=== PATIENT | female | born 1955 | race Caucasian/White ===

== ENCOUNTER 2018-10-10 13:21 | Emergency (ER) | payer OTHER ==
--- NOTE | 2018-10-10 14:19 | ER Document Report ---
ED Medical Screen (RME) - General Chief Complaint: Rectal Pain Stated Complaint: CONTINUED LOW BACK PAIN Time Seen by Provider: 10/10/18 14:03 Mode of Arrival: Ambulatory Information source: Patient Notes: 62-year-old female presented to ED for continued pain in her sacral rectum area. She states it feels like a red hot branches stepped up her but. She states she was seen here a week ago and was told she was had constipation and that she needed a colonoscopy. She states she did follow-up with Dr. Milli CAO and he said that he did not think she had diverticulitis and that he did think she needed a colonoscopy. She states that a year and a half ago she did fall 30 feet and landing on her buttocks. Last week when I saw her she had lab work and CT with IV and oral contrast which were negative for any acute abnormalities. She states she has been researching and she thinks she has a lesion on her sacrum. I have spoken with Dr. May and he stated that to go ahead and get the MRI on her lumbar sacral area. The MRI has been ordered. Patient will be seen by another provider. I have greeted and performed a rapid initial assessment of this patient. A comprehensive ED assessment and evaluation of the patient, analysis of test results and completion of medical decision making process will be conducted by an additional ED providers. Dictation of this chart was performed using voice recognition software; therefore, there may be some unintended grammatical errors. TRAVEL OUTSIDE OF THE [place] IN LAST 30 DAYS: No - Related Data Allergies/Adverse Reactions: No Known Allergies Allergy (Verified 10/10/18 13:25) Past Medical History - Social History Chew tobacco use (# tins/day): No Frequency of alcohol use: Occasional Drug Abuse: None Renal/ Medical History: Denies: Hx Peritoneal Dialysis Past Surgical History: Reports: Hx Hysterectomy Physical Exam - Vital signs Vitals: Temp Pulse Resp BP Pulse Ox 97.7 F 83 18 124/96 H 97 10/10/18 13:30 10/10/18 13:30 10/10/18 13:30 10/10/18 13:30 10/10/18 13:30 Course - Vital Signs Vital signs: Temp Pulse Resp BP Pulse Ox 97.7 F 83 18 124/96 H 97 10/10/18 13:30 10/10/18 13:30 10/10/18 13:30 10/10/18 13:30 10/10/18 13:30
[2018-10-10] MEDS ORDERED: KETOROLAC TROMETHAMINE INJ/PF 30 MG/1 ML SDV IM ONE (15:22)
[2018-10-10] MEDS ORDERED: ONDANSETRON 4 MG TAB.RAPDIS PO ONE (15:29)
[2018-10-10] MEDS ORDERED: MORPHINE SULFATE 10 MG/ML INJ IM ONE ×2 (15:29)
[2018-10-10] MEDS ORDERED: ONDANSETRON HCL INJ/PF 4 MG/2 ML SDV IM ONE (15:30)
[2018-10-10] MEDS ORDERED: MORPHINE SULFATE 10 MG/ML INJ IV ONE (16:15)
[2018-10-10] MEDS ORDERED: HYDROMORPHONE HCL INJ/PF 2 MG/ML AMPULE IV ONE ×2 (17:39→19:12)
--- NOTE | 2018-10-10 17:41 | ER Document Report ---
ED General - General Chief Complaint: Rectal Pain Stated Complaint: CONTINUED LOW BACK PAIN Time Seen by Provider: 10/10/18 14:03 Primary Care Provider: MARS FINLEY MD [ACTIVE STAFF] - Follow up in 3-5 days Mode of Arrival: Ambulatory Information source: Patient Notes: Patient presents complaining of sacral pain for the past month. Patient states pain will radiate to the posterior aspect of her left thigh. Patient states that she saw an urgent care last week who did notice that she had some blood in her stool. Patient was seen in the emergency department last week and had a negative CT scan and lab work done. Patient was referred to a GI doctor who she saw 2 days ago and is planning to set her up for a colonoscopy although does not suspect that her pain is related to a GI source at this time. Patient denies any injury. Patient denies any fever or weight loss. Patient states pain is been constant daily but has been worsening recently. Patient is concerned that she may have a mass and is requesting an MRI to evaluate this. TRAVEL OUTSIDE OF THE [place] IN LAST 30 DAYS: No - HPI Onset: Other - 1 month Onset/Duration: Persistent, Worse Quality of pain: Sharp, Throbbing Pain Level: 5 Associated symptoms: denies: Body/muscle aches, Chest pain, Nonproductive cough, Fever, Nausea, Vomiting, Weakness Exacerbated by: Sitting Relieved by: Denies Similar symptoms previously: No Recently seen / treated by doctor: Yes - Related Data Allergies/Adverse Reactions: No Known Allergies Allergy (Verified 10/10/18 13:25) Past Medical History - General Information source: Patient - Social History Smoking Status: Never Smoker Chew tobacco use (# tins/day): No Frequency of alcohol use: Occasional Drug Abuse: None Occupation: none Lives with: Family Family History: Reviewed & Not Pertinent Patient has suicidal ideation: No Patient has homicidal ideation: No - Medical History Medical History: Negative Renal/ Medical History: Denies: Hx Peritoneal Dialysis Past Surgical History: Reports: Hx Hysterectomy, Hx Orthopedic Surgery Review of Systems - Review of Systems Constitutional: No symptoms reported. denies: Chills, Fever, Malaise, Weakness, Weight loss, Recent illness EENT: No symptoms reported Cardiovascular: No symptoms reported. denies: Chest pain, Lightheaded Respiratory: No symptoms reported. denies: Cough, Short of breath Gastrointestinal: No symptoms reported. denies: Abdominal pain, Nausea, Vomiting Genitourinary: No symptoms reported. denies: Dysuria, Flank pain Female Genitourinary: No symptoms reported Musculoskeletal: Back pain - Sacral pain Skin: No symptoms reported Hematologic/Lymphatic: No symptoms reported Neurological/Psychological: No symptoms reported. denies: Weakness, Numbness, Tingling Physical Exam - Vital signs Vitals: Temp Pulse Resp BP Pulse Ox 97.7 F 83 18 124/96 H 97 10/10/18 13:30 10/10/18 13:30 10/10/18 13:30 10/10/18 13:30 10/10/18 13:30 - General General appearance: Appears well, Alert In distress: Mild - HEENT Head: Normocephalic, Atraumatic Eyes: Normal Conjunctiva: Normal Nasal: Normal Mouth/Lips: Normal Mucous membranes: Normal Neck: Normal, Supple - Respiratory Respiratory status: No respiratory distress Chest status: Nontender Breath sounds: Normal. No: Rales, Rhonchi, Stridor, Wheezing Chest palpation: Normal - Cardiovascular Rhythm: Regular Heart sounds: S1 appreciated, S2 appreciated Murmur: No - Back Back: Tender - tenderness to the gluteal cleft - Extremities General upper extremity: Normal inspection, Normal strength General lower extremity: Normal inspection, Normal strength - Neurological Neuro grossly intact: Yes Cognition: Normal Orientation: AAOx4 Mcgrann Coma Scale Eye Opening: Spontaneous Mc[place]ann Coma Scale Verbal: Oriented Mcgrann Coma Scale Motor: Obeys Commands Mcgrann Coma Scale Total: 15 Speech: Normal Cranial nerves: Normal Cerebellar coordination: Normal. No: Gait ataxia Motor strength normal: LUE, RUE, LLE, RLE Sensory: Normal. No: Altered light touch Notes: No saddle anesthesia - Psychological Associated symptoms: Normal affect, Normal mood - Skin Skin Temperature: Warm Skin Moisture: Dry Skin Color: Normal Course - Re-evaluation Re-evalutation: 10/10/18 17:[address] Babak May regarding patient presentation, recommends consultation with oncologist Dr. Finley. 10/10/18 18:[address] Finley, reviewed the patient's diagnostic work-up from today as well as last week's visit. Recommends adding on a CT chest with IV contrast for further evaluation. Recommends giving patient the option of admission for pain control or to be discharged and to follow-up with his office on Saturday. Dr. Finley received patient's contact information and states that his office will call her on Saturday morning if she does not want to be admitted for pain control. Discussed plan of care with patient, patient states that she feels that she can take oral medications and attempt to manage her pain until she can see them in the office on Saturday. 10/10/18 19:13 Dr. Finley advised of patient's CT chest report results. Recommends follow-up in the office next week as planned. No additional testing advised at this time. - Vital Signs Vital signs: Temp Pulse Resp BP Pulse Ox 98.2 F 85 16 123/101 H 95 10/10/18 19:42 10/10/18 19:42 10/10/18 19:42 10/10/18 19:42 10/10/18 19:42 - Laboratory Result Diagrams: 10/10/18 18:27 Laboratory results interpreted by me: 10/10/18 18:27 Est GFR (Non-Af Amer) 57 L Calcium 10.4 H Labs- Entire Visit 10/10/18 18:27 Sodium 140.2 Potassium 4.7 Chloride 102 Carbon Dioxide 25 Anion Gap 13 BUN 13 Creatinine 0.99 Est GFR ( Amer) > 60 Est GFR (Non-Af Amer) 57 L Glucose 101 Calcium 10.4 H - Diagnostic Test Radiology reviewed: Reports reviewed Discharge - Discharge Clinical Impression: Lung mass, Sacral mass, Sacral back pain Condition: Stable Disposition: HOME, SELF-CARE Instructions: Growth or Mass, Pending Workup ([facility]), Oral Narcotic Medication ([facility]) Additional Instructions: Return immediately for any new or worsening symptoms Dr. Finley's office will call you Saturday or Saturday. If you have not heard from them on Saturday can give their office a call. They will see you in the office next week for further evaluation and to set up a time for biopsy. Prescriptions: Oxycodone HCl/Acetaminophen [Percocet 5-325 mg Tablet] 2 tab PO ASDIR PRN #30 tablet PRN Reason: Referrals: MARS FINLEY MD [ACTIVE STAFF] - Follow up in 3-5 days
--- NOTE | 2018-10-10 17:44 | RADIOLOGY REPORT (SQ) ---
EXAM DESCRIPTION: MRI LUMBAR SPINE COMBO COMPLETED DATE/TIME: 10/10/2018 5:11 pm REASON FOR STUDY: Severe lumbar sacral spine continued COMPARISON: None. TECHNIQUE: Sagittal and Axial imaging includes T1, T1 post gadolinium, T2, STIR and gradient echo se quences. Coronal T2/HASTE imaging. CONTRAST TYPE AND DOSE: 15 mL Dotarem. RENAL FUNCTION: GFR > 60. LIMITATIONS: None. FINDINGS: VISUALIZED UPPER ABDOMEN: Limited evaluation. No acute or suspicious findings suggested. Multilevel degenerative disc disease throughout the lumbar spine with disc desiccation and mild disc height loss throughout all levels. Greatest disc height loss at the L1-2 level, approximately 75%. Global disc bulging at all levels is present, no focal disc protrusion or high-grade stenosis-nerve r oot compression. There is 6 mm of anterolisthesis of L4 on L5 due to digit degenerative facet arthro sis. SACRUM: There is an enhancing mass in the lower central sacral body, at the level of the S 4 -5 neuro foramina. The mass has low T1 signal, intermediate -high T2 signal, and enhances vividly, this mass measures 3.6 cm in craniocaudad dimension by 3.2 cm transversely by 2.0 cm in AP dimension. There is mild adjacent periosteal -presacral fat enhancement and erosion of the anterior sacral cortex. OTHER: No other significant findings. IMPRESSION: There is an enhancing mass in the lower central sacral body, at the level of the S 4 -5 neuroforamina. The mass has low T1 signal, intermediate -high T2 signal, and enhances vividly, this m ass measures 3.6 cm in craniocaudad dimension by 3.2 cm transversely by 2.0 cm in AP dimension. Ther e is mild adjacent periosteal -presacral fat enhancement and erosion of the anterior sacral cortex. TECHNICAL DOCUMENTATION: JOB ID: [id number] [place]-72 2010 [employer]- All Rights Reserved Reading location - IP/workstation name: [email or web address]
[2018-10-10 18:54] LABS: ANION GAP 13 (5-19); BLOOD UREA NITROGEN 13 mg/dL (7-20); CALCIUM 10.4 mg/dL (8.4-10.2); CARBON DIOXIDE 25 mmol/L (22-30); CHLORIDE 102 mmol/L (98-107); GLUCOSE 101 mg/dL (75-110); POTASSIUM 4.7 mmol/L (3.6-5.0)
--- NOTE | 2018-10-10 18:56 | RADIOLOGY REPORT (SQ) ---
EXAM DESCRIPTION: CT CHEST WITH COMPLETED DATE/TIME: 10/10/2018 6:41 pm REASON FOR STUDY: sacral lesion, (req per Dr Camarena) COMPARISON: None. TECHNIQUE: CT scan of the chest performed using helical scanning technique with dynamic intravenous contrast injection. Images reviewed with lung, soft tissue and bone windows. Reconstructed coronal and sagittal MPR and MIP images reviewed. All images stored on PACS. All CT scanners at this facility use dose modulation, iterative reconstruction, and/or weight based d osing when appropriate to reduce radiation dose to as low as reasonably achievable (ALARA). [facility]: Dose Right [facility]: CareDose [facility]: Dose Right [facility]: Teradose 4D [facility]: [employer] CONTRAST TYPE AND DOSE: 100 mL Omnipaque 300- low osmolar. RENAL FUNCTION: GFR > 60. RADIATION DOSE: CT Rad equipment meets quality standard of care and radiation dose reduction techniq ues were employed. CTDIvol: 11.4 mGy. DLP: 412 mGy-cm. . LIMITATIONS: None. FINDINGS: LUNGS AND PLEURA: 3.4 cm spiculated mass in the left upper lobe with small areas of upper mediastinal adenopathy. . No pneumothorax. No effusions. HEART AND VASCULAR STRUCTURES: No aneurysm or dissection. No central pulmonary emboli. No pericardi al effusion. HARDWARE: None in the chest. UPPER ABDOMEN: No significant findings. Limited exam. THYROID AND OTHER SOFT TISSUES: No masses. No adenopathy. BONES: No significant finding. OTHER: No other significant finding. IMPRESSION: 3.4 cm spiculated mass in the left upper lobe with small areas of upper mediastinal rosalba opathy. TECHNICAL DOCUMENTATION: JOB ID: [id number] [place]-72 Quality ID # 436: Final reports with documentation of one or more dose reduction techniques (e.g., Au tomated exposure control, adjustment of the mA and/or kV according to patient size, use of iterative reconstruction technique) 2010 [employer]- All Rights Reserved Reading location - IP/workstation name: [email or web address]
[2018-10-10 19:43] VITALS: BP 123/101
== END 2018-10-10 19:43 | disposition home or self-care (01) ==
LOC: ER 13:21
DX: R22.2 Localized swelling, mass and lump, trunk (principal); R91.8 Other nonspecific abnormal finding of lung field; M53.3 Sacrococcygeal disorders, not elsewhere classified; M79.652 Pain in left thigh
CPT/HCPCS: 36415; 80048; 72158; 71260; A9576; S0119; J2270; J1170; 96374; 96375; 96376; 99284

== ENCOUNTER 2018-10-15 11:09 | Day surgery (SDC) | payer OTHER ==
[2018-10-15 12:14] LABS: HEMATOCRIT 43.3 % (36.0-47.0); HEMOGLOBIN 14.7 g/dL (12.0-15.5); MEAN CORPUSCULAR HEMOGLOBIN 32.3 pg (27.0-33.4); MEAN CORPUSCULAR HGB CONC 33.9 g/dL (32.0-36.0); MEAN CORPUSCULAR VOLUME 95 fl (80-97); PLATELET COUNT 251 10^3/uL (150-450); RED BLOOD COUNT 4.56 10^6/uL (3.72-5.28); RED CELL DISTRIBUTION WIDTH 12.5 % (11.5-14.0); WHITE BLOOD COUNT 5.5 10^3/uL (4.0-10.5)
[2018-10-15 12:23] LABS: INTERNATIONAL RATION (INR) 0.97; PROTHROMBIN TIME 12.9 SEC (11.4-15.4)
[2018-10-15 12:24] LABS: PARTIAL THROMBOPLASTIN TIME 28.8 SEC (23.5-35.8)
[2018-10-15 12:37] LABS: BLOOD UREA NITROGEN 11 mg/dL (7-20)
[2018-10-15] MEDS ORDERED: MIDAZOLAM 2 MG/2 ML INJ ONE (13:04)
[2018-10-15] MEDS ORDERED: FENTANYL CITRATE INJ/PF 100 MCG/2 ML AMPUL ONE (13:04)
--- NOTE | 2018-10-15 14:30 | RADIOLOGY REPORT (SQ) ---
EXAM DESCRIPTION: CT BIOPSY BONE DEEP; CT NEEDLE PLACEMENT COMPLETED DATE/TIME: 10/15/2018 1:59 pm; 10/15/2018 1:58 pm REASON FOR STUDY: SACRAL MASS; SACRAL MASS, BONE BIOPSY S34.132A INCOMPLETE LESION OF SACRAL SPINAL CORD, INITIAL EN COMPARISON: None. TECHNIQUE: CT guided biopsy of the sacral soft tissue mass performed with conscious sedation. CT Fluoroscopy Time: 3.[address] scanners at this facility use dose modulation, iterative reconstruction, and/or weight based d osing when appropriate to reduce radiation dose to as low as reasonably achievable (ALARA). [facility]: Dose Right [facility]: CareDose [facility]: Dose Right [facility]: Teradose 4D [facility]: [employer] RADIATION DOSE: mGy. FINDINGS: After obtaining informed consent and explaining the risks and benefits of conscious sedati on,the patient agreed to the procedure. Prior to the procedure, a time out was performed to verify th e patient's identity and planned procedure. IV sedation was administered and physician direction by the registered nurse using 1 milligrams of Ve rsed and 75 micrograms of fentanyl, for conscious sedation. Physiologic monitoring was provided befor e, during, and after sedation. The total sedation time was 30 minutes. Documentation face to face time, the performing proceduralist, spent monitoring the patient: [address] scanning was performed to localize the percutaneous site for the biopsy approach. After sterile skin prep and local lidocaine for skin and deep tissue anesthesia, a coaxial biopsy nee dle was used to obtain multiple 18 gauge cores of tissue of the sacral soft tissue lesion. The biops y tissue was submitted to the lab in formalin. There were no immediate complications. Pathology is pending at the time of dictation. IMPRESSION: CT GUIDED BIOPSY OF THE SACRAL SOFT TISSUE LESION PERFORMED WITHOUT IMMEDIATE COMPLICATI ON. PATHOLOGY PENDING. COMMENT: Quality ID 145: Final reports for procedures using fluoroscopy that document radiation exp osure indices, or exposure time and number of fluorographic images (if radiation exposure indices are not available) Patient medication list reviewed: Yes- Quality ID# [id number]:Eligible professional attests to documenting i n the medical record they obtained, updated, or reviewed the patient's current medications.. TECHNICAL DOCUMENTATION: JOB ID: [id number] Quality ID# 436: Final reports with documentation of one or more dose reduction techniques (e.g., Aut omated exposure control, adjustment of the mA and/or kV according to patient size, use of iterative r econstruction technique) 2010 [employer]- All Rights Reserved Reading location - IP/workstation name: [email or web address]
--- NOTE | 2018-10-15 14:30 | RADIOLOGY REPORT (SQ) ---
EXAM DESCRIPTION: CT BIOPSY BONE DEEP; CT NEEDLE PLACEMENT COMPLETED DATE/TIME: 10/15/2018 1:59 pm; 10/15/2018 1:58 pm REASON FOR STUDY: SACRAL MASS; SACRAL MASS, BONE BIOPSY S34.132A INCOMPLETE LESION OF SACRAL SPINAL CORD, INITIAL EN COMPARISON: None. TECHNIQUE: CT guided biopsy of the sacral soft tissue mass performed with conscious sedation. CT Fluoroscopy Time: 3.[address] scanners at this facility use dose modulation, iterative reconstruction, and/or weight based d osing when appropriate to reduce radiation dose to as low as reasonably achievable (ALARA). [facility]: Dose Right [facility]: CareDose [facility]: Dose Right [facility]: Teradose 4D [facility]: [employer] RADIATION DOSE: mGy. FINDINGS: After obtaining informed consent and explaining the risks and benefits of conscious sedati on,the patient agreed to the procedure. Prior to the procedure, a time out was performed to verify th e patient's identity and planned procedure. IV sedation was administered and physician direction by the registered nurse using 1 milligrams of Ve rsed and 75 micrograms of fentanyl, for conscious sedation. Physiologic monitoring was provided befor e, during, and after sedation. The total sedation time was 30 minutes. Documentation face to face time, the performing proceduralist, spent monitoring the patient: [address] scanning was performed to localize the percutaneous site for the biopsy approach. After sterile skin prep and local lidocaine for skin and deep tissue anesthesia, a coaxial biopsy nee dle was used to obtain multiple 18 gauge cores of tissue of the sacral soft tissue lesion. The biops y tissue was submitted to the lab in formalin. There were no immediate complications. Pathology is pending at the time of dictation. IMPRESSION: CT GUIDED BIOPSY OF THE SACRAL SOFT TISSUE LESION PERFORMED WITHOUT IMMEDIATE COMPLICATI ON. PATHOLOGY PENDING. COMMENT: Quality ID 145: Final reports for procedures using fluoroscopy that document radiation exp osure indices, or exposure time and number of fluorographic images (if radiation exposure indices are not available) Patient medication list reviewed: Yes- Quality ID# [id number]:Eligible professional attests to documenting i n the medical record they obtained, updated, or reviewed the patient's current medications.. TECHNICAL DOCUMENTATION: JOB ID: [id number] Quality ID# 436: Final reports with documentation of one or more dose reduction techniques (e.g., Aut omated exposure control, adjustment of the mA and/or kV according to patient size, use of iterative r econstruction technique) 2010 [employer]- All Rights Reserved Reading location - IP/workstation name: [email or web address]
[2018-10-15 15:27] VITALS: BP 127/77
== END 2018-10-15 15:45 | disposition home or self-care (01) ==
LOC: RAD 11:09
PROVIDERS: ATTEND Internal Medicine
DX: C79.51 Secondary malignant neoplasm of bone (principal); R59.0 Localized enlarged lymph nodes; S34.13 Other and unspecified injury to sacral spinal cord; X58.XXXA Exposure to other specified factors, initial encounter
CPT/HCPCS: 36415; 84520; 82565; 85027; 85610; 85730; 88342 ×2; 88341 ×2; 88305 ×2; 77012; 20225; J2250; J3010

== ENCOUNTER 2018-10-29 07:58 | Emergency (ER) | payer OTHER ==
[2018-10-29] MEDS ORDERED: HYDROMORPHONE HCL INJ/PF 2 MG/ML AMPULE IV ONE ×2 (08:58→11:31)
[2018-10-29 09:36] LABS: APPEARANCE,URINE CLEAR; BILIRUBIN,URINE NEGATIVE (NEGATIVE); COLOR,URINE STRAW; GLUCOSE, URINE NEGATIVE (NEGATIVE); KETONES,URINE NEGATIVE (NEGATIVE); LEUKOCYTE ESTERASE,URINE NEGATIVE (NEGATIVE); NITRITE,URINE NEGATIVE (NEGATIVE); PROTEIN,URINE NEGATIVE (NEGATIVE); URINE SPECIFIC GRAVITY 1.012; UROBILINOGEN,URINE NEGATIVE mg/dL (<2.0)
[2018-10-29 11:07] LABS: ABSOLUTE EOSINOPHILS # (AUTO) 0.1 10^3/uL (0.0-0.6); ABSOLUTE LYMPHOCYTES (AUTO) 0.9 10^3/uL (0.5-4.7); ABSOLUTE MONOCYTES (AUTO) 0.6 10^3/uL (0.1-1.4); ABSOLUTE NEUT (AUTO) 8.1 10^3/uL (1.7-8.2); BASOPHILS % (AUTO) 0.5 % (0-2); LYMPHOCYTES % (AUTO) 9.5 % (13-45); MEAN CORPUSCULAR HGB CONC 33.3 g/dL (32.0-36.0); MEAN CORPUSCULAR VOLUME 96 fl (80-97); MONOCYTES % (AUTO) 5.9 % (3-13); PLATELET COUNT 296 10^3/uL (150-450); RED BLOOD COUNT 4.37 10^6/uL (3.72-5.28); RED CELL DISTRIBUTION WIDTH 12.8 % (11.5-14.0); SEGMENTED NEUTROPHILS % (AUTO) 83.1 % (42-78); TOTAL CELLS COUNTED % (AUTO) 100 %; WHITE BLOOD COUNT 9.8 10^3/uL (4.0-10.5)
[2018-10-29 11:12] LABS: ALBUMIN 3.9 g/dL (3.5-5.0); ALKALINE PHOSPHATASE 59 U/L (38-126); ANION GAP 9 (5-19); ASPARTATE AMINO TRANSFERASE 18 U/L (14-36); BILIRUBIN,DIRECT 0.4 mg/dL (0.0-0.4); BILIRUBIN,TOTAL 0.4 mg/dL (0.2-1.3); BLOOD UREA NITROGEN 19 mg/dL (7-20); CALCIUM 9.8 mg/dL (8.4-10.2); CARBON DIOXIDE 30 mmol/L (22-30); CHLORIDE 99 mmol/L (98-107); GLUCOSE 104 mg/dL (75-110); POTASSIUM 4.7 mmol/L (3.6-5.0); TOTAL PROTEIN 6.7 g/dL (6.3-8.2)
--- NOTE | 2018-10-29 12:19 | ER Document Report ---
ED General - General Chief Complaint: Urinary Retention Stated Complaint: PAIN, LOW BACK Time Seen by Provider: 10/29/18 08:58 Mode of Arrival: Ambulatory Information source: Patient TRAVEL OUTSIDE OF THE [place] IN LAST 30 DAYS: No - HPI Notes: Patient comes in complaining of urinary retention and severe sacral and abdominal pain. She does have a history of metastatic cancer. She states his pain is been going on for a little over a week. It has been constant and severe. She states it is not controlled with her outpatient medications. Nothing makes it better or worse. It radiates from the sacral area into her abdomen. She also states she is unable to pee this morning. No diarrhea or vomiting. No fevers. Pain is sharp. - Related Data Allergies/Adverse Reactions: morphine Adverse Reaction (Verified 10/29/18 09:21) Past Medical History - General Information source: Patient - Social History Smoking Status: Never Smoker Chew tobacco use (# tins/day): No Frequency of alcohol use: None Drug Abuse: None Family History: Reviewed & Not Pertinent Patient has suicidal ideation: No Patient has homicidal ideation: No - Past Medical History Cardiac Medical History: Denies: Hx Coronary Artery Disease, Hx Heart Attack, Hx Hypertension Pulmonary Medical History: Denies: Hx Asthma, Hx Bronchitis, Hx Pneumonia Comment Only: Hx 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, BX SATURDAY Neurological Medical History: Denies: Hx Cerebrovascular Accident, Hx Seizures Renal/ Medical History: Denies: Hx Peritoneal Dialysis Musculoskeletal Medical History: Denies Hx Arthritis Past Surgical History: Reports: Hx Hysterectomy, Hx Orthopedic Surgery - Immunizations Hx Diphtheria, Pertussis, Tetanus Vaccination: Yes Review of Systems - Review of Systems Constitutional: denies: Chills, Fever Cardiovascular: denies: Chest pain, Dyspnea Respiratory: denies: Cough, Short of breath -: Yes All other systems reviewed and negative Physical Exam - Vital signs Vitals: Temp Pulse Resp BP Pulse Ox 98.3 F 134 H 24 H 128/75 H 95 10/29/18 08:02 10/29/18 08:02 10/29/18 08:02 10/29/18 08:02 10/29/18 08:02 Interpretation: Tachycardic - General General appearance: Appears well, Alert - HEENT Head: Normocephalic, Atraumatic Eyes: Normal Pupils: PERRL - Respiratory Respiratory status: No respiratory distress Chest status: Nontender Breath sounds: Normal Chest palpation: Normal - Cardiovascular Rhythm: Tachycardia Heart sounds: Normal auscultation Murmur: No - Abdominal Inspection: Normal Distension: No distension Bowel sounds: Normal Tenderness: Nontender Organomegaly: No organomegaly - Back Back: Normal, Nontender - Extremities General upper extremity: Normal inspection, Nontender, Normal color, Normal ROM, Normal temperature General lower extremity: Normal inspection, Nontender, Normal color, Normal ROM, Normal temperature, Normal weight bearing. No: Juan Jose's sign - Neurological Neuro grossly intact: Yes Cognition: Normal Orientation: AAOx4 [place] Coma Scale Eye Opening: Spontaneous Sia Coma Scale Verbal: Oriented Sia Coma Scale Motor: Obeys Commands [place] Coma Scale Total: 15 Speech: Normal Motor strength normal: LUE, RUE, LLE, RLE Sensory: Normal - Psychological Associated symptoms: Normal affect, Normal mood - Skin Skin Temperature: Warm Skin Moisture: Dry Skin Color: Normal Course - Re-evaluation Re-evalutation: 10/29/18 12:16 Patient has significant relief with IV Dilaudid and placement of a Billy. Patient will have a leg bag placed and she will be referred to urology. Laboratories are unremarkable no evidence of infection. I did speak with [facility] where patient is receiving her oncology care. They felt that patient can be treated locally until they have availability which they currently do not have. I called patient's oncologist here in [place], Dr. Thi dawson. He asked the patient come over to his office once I discharge the patient from here. - Vital Signs Vital signs: Temp Pulse Resp BP Pulse Ox 98.3 F 134 H 24 H 128/75 H 95 10/29/18 08:02 10/29/18 08:02 10/29/18 08:02 10/29/18 08:02 10/29/18 08:02 - Laboratory Result Diagrams: 10/29/18 09:20 10/29/18 09:20 Laboratory results interpreted by me: 10/29/18 09:20 Lymph % (Auto) 9.5 L Seg Neutrophils % 83.1 H Discharge - Discharge Clinical Impression: Metastatic adenocarcinoma, Urinary retention, Intractable back pain Condition: Stable Disposition: HOME, SELF-CARE Instructions: Urinary Retention ([facility]) Additional Instructions: Please call urology as soon as possible to schedule a follow-up appointment. Please go straight to Dr. Camarena's office when you leave here today. Referrals: DARWIN MCCARTNEY MD [NO LOCAL MD] - Follow up in 3-5 days MARS CAMARENA MD [ACTIVE STAFF] - 10/29/18 1:00 pm
[2018-10-29 12:40] VITALS: BP 125/100
== END 2018-10-29 12:40 | disposition home or self-care (01) ==
LOC: ER 07:58
DX: C80.1 Malignant (primary) neoplasm, unspecified (principal); R33.9 Retention of urine, unspecified; M54.9 Dorsalgia, unspecified; M54.5 Low back pain
CPT/HCPCS: 96376; 99283; 96374; 36415; 85025; 80053; 81001; J1170

== ENCOUNTER 2018-12-02 15:18 | Emergency (ER) | payer OTHER ==
[2018-12-02] MEDS ORDERED: ASPIRIN 81 MG TABLET, CHEWABLE PO ONE (15:48)
--- NOTE | 2018-12-02 15:50 | ER Document Report ---
ED Medical Screen (RME) - General Chief Complaint: Chest Pain Stated Complaint: CHEST PAIN Time Seen by Provider: 12/02/18 15:39 Mode of Arrival: Wheelchair Information source: Patient Notes: 62-year-old female presented to ED for chest pain 245. She states that is stopped now. She states she had severe shortness of breath could not get her breath her blood pressure was 168/98 and she was having severe sharp chest pain. She does have adenocarcinoma they found an aortoiliac sacrum and now she has lung cancer. She is alert oriented respirations regular and unlabored speaking in full sentences. Patient states she is pain-free at this time. I have greeted and performed a rapid initial assessment of this patient. A comprehensive ED assessment and evaluation of the patient, analysis of test results and completion of medical decision making process will be conducted by an additional ED providers. TRAVEL OUTSIDE OF THE [place] 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, BX SATURDAY Neurological Medical History: Denies: Hx Cerebrovascular Accident, Hx Seizures Renal/ Medical History: Denies: Hx Peritoneal Dialysis Musculoskeltal Medical History: Denies Hx Arthritis Past Surgical History: Reports: Hx Hysterectomy, Hx Orthopedic Surgery - Immunizations Hx Diphtheria, Pertussis, Tetanus Vaccination: Yes Physical Exam - Vital signs Vitals: Temp Pulse Resp BP Pulse Ox 98.4 F 75 18 129/80 H 98 12/02/18 15:31 12/02/18 15:31 12/02/18 15:31 12/02/18 15:31 12/02/18 15:31 Course - Vital Signs Vital signs: Temp Pulse Resp BP Pulse Ox 98.4 F 75 18 129/80 H 98 12/02/18 15:31 12/02/18 15:31 12/02/18 15:31 12/02/18 15:31 12/02/18 15:31
[2018-12-02 16:21] LABS: ABSOLUTE LYMPHOCYTES (AUTO) 0.9 10^3/uL (0.5-4.7); ABSOLUTE MONOCYTES (AUTO) 0.3 10^3/uL (0.1-1.4); BASOPHILS % (AUTO) 0.5 % (0-2); EOSINOPHILS % (AUTO) 0.9 % (0-6); HEMATOCRIT 39.5 % (36.0-47.0); HEMOGLOBIN 13.2 g/dL (12.0-15.5); LYMPHOCYTES % (AUTO) 16.4 % (13-45); MEAN CORPUSCULAR HEMOGLOBIN 32.9 pg (27.0-33.4); MEAN CORPUSCULAR HGB CONC 33.3 g/dL (32.0-36.0); MEAN CORPUSCULAR VOLUME 99 fl (80-97); MONOCYTES % (AUTO) 6.5 % (3-13); PLATELET COUNT 242 10^3/uL (150-450); RED CELL DISTRIBUTION WIDTH 13.9 % (11.5-14.0); SEGMENTED NEUTROPHILS % (AUTO) 75.7 % (42-78); TOTAL CELLS COUNTED % (AUTO) 100 %; WHITE BLOOD COUNT 5.3 10^3/uL (4.0-10.5)
[2018-12-02 16:31] LABS: INTERNATIONAL RATION (INR) 0.94; PROTHROMBIN TIME 12.6 SEC (11.4-15.4)
[2018-12-02 16:32] LABS: PARTIAL THROMBOPLASTIN TIME 26.2 SEC (23.5-35.8)
[2018-12-02 16:42] LABS: ALBUMIN 3.7 g/dL (3.5-5.0); ALKALINE PHOSPHATASE 81 U/L (38-126); ANION GAP 6 (5-19); ASPARTATE AMINO TRANSFERASE 70 U/L (14-36); BILIRUBIN,DIRECT 0.2 mg/dL (0.0-0.4); BILIRUBIN,TOTAL 0.4 mg/dL (0.2-1.3); BLOOD UREA NITROGEN 23 mg/dL (7-20); CALCIUM 9.2 mg/dL (8.4-10.2); CARBON DIOXIDE 30 mmol/L (22-30); CHLORIDE 102 mmol/L (98-107); CREATINE KINASE 43 U/L (30-135); GLUCOSE 104 mg/dL (75-110); POTASSIUM 4.6 mmol/L (3.6-5.0); TOTAL PROTEIN 6.4 g/dL (6.3-8.2)
[2018-12-02 16:54] LABS: CREATINE KINASE MB 0.65 ng/mL (<4.55); NT PRO BNP 107 pg/mL (5-900)
[2018-12-02 16:57] LABS: TROPONIN I < 0.012 ng/mL
--- NOTE | 2018-12-02 18:27 | RADIOLOGY REPORT (SQ) ---
EXAM DESCRIPTION: CTA CHEST COMPLETED DATE/TIME: 12/02/2018 5:55 pm REASON FOR STUDY: chest pain/hx cancer COMPARISON: 10/10/2018. TECHNIQUE: CT scan of the chest performed using helical scanning technique with dynamic intravenous contrast injection. Images reviewed with lung, soft tissue and bone windows. Reconstructed coronal and sagittal MPR images reviewed. Additional 3 dimensional post-processing performed to develop Maximal Intensity Projection images (NC P). All images stored on PACS. All CT scanners at this facility use dose modulation, iterative reconstruction, and/or weight based d osing when appropriate to reduce radiation dose to as low as reasonably achievable (ALARA). [facility]: Dose Right [facility]: CareDose [facility]: Dose Right [facility]: Teradose 4D [facility]: Smash Bucket CONTRAST TYPE AND DOSE: contrast/concentration: Isovue 350.00 mg/ml; Total Contrast Delivered: 61.0 ml; Total Saline Delivered: 80.0 ml Contrast bolus adequate for pulmonary arteries and aorta. RENAL FUNCTION: BUN 23 creatinine 0.84. RADIATION DOSE: CT Rad equipment meets quality standard of care and radiation dose reduction techniq ues were employed. CTDIvol: 9.9 - 16.3 mGy. DLP: 601 mGy-cm. . LIMITATIONS: None. FINDINGS: LUNGS AND PLEURA: Spiculated mass in the left upper lobe, little change from the prior april dy. No focal infiltrates. No pneumothorax. No pleural effusions or pleural calcifications. AORTA AND GREAT VESSELS: No aneurysm. No dissection. HEART: No pericardial effusion. No significant coronary artery calcifications. PULMONARY ARTERIES: No emboli visualized in the main pulmonary arteries or the segmental branches. HILAR AND MEDIASTINAL STRUCTURES: No identified masses or abnormal nodes. HARDWARE: None in the chest. UPPER ABDOMEN: No significant findings. Limited exam. THYROID AND OTHER SOFT TISSUES: No masses. No adenopathy. BONES: No acute or significant finding. 3D MIPS: Confirm above findings. OTHER: No other significant finding. IMPRESSION: 1. NORMAL CTA OF THE CHEST. NO PULMONARY EMBOLI. 2. SPICULATED MASS IN THE LEFT UPPER LOBE. LITTLE CHANGE FROM THE PRIOR STUDY. NO ACUTE FINDINGS. COMMENT: Quality ID # [id number]: Final reports with documentation of one or more dose reduction techniques (e.g., Automated exposure control, adjustment of the mA and/or kV according to patient size, use of iterative reconstruction technique) TECHNICAL DOCUMENTATION: JOB ID: [id number] [employer]- All Rights Reserved Reading location - IP/workstation name: [email or web address]
--- NOTE | 2018-12-02 19:09 | ER Document Report ---
ED Cardiac - General Chief Complaint: Chest Pain Stated Complaint: CHEST PAIN Time Seen by Provider: 12/02/18 15:39 Mode of Arrival: Ambulatory Information source: Patient TRAVEL OUTSIDE OF THE [place] IN LAST 30 DAYS: No - HPI Notes: Patient presents today with chest pain. She states it started just before arrival. She states with onset of her chest and sharp. It was moderate in intensity. It lasted for about 1 hour. Nothing made it better or worse. She states that it spontaneously resolved. She has no previous history of cardiac disease. No history of DVTs or PEs. No recent cough or congestion. She did just recently have radiation for her metastatic cancer. It did not radiate. 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 denies: Palpitations Respiratory: Short of breath. denies: Cough Gastrointestinal: denies: Abdominal pain, Diarrhea, Vomiting -: Yes All other systems reviewed and negative Physical Exam - Vital signs Vitals: Temp Pulse Resp BP Pulse Ox 98.4 F 75 18 129/80 H 98 12/02/18 15:31 12/02/18 15:31 12/02/18 15:31 12/02/18 15:31 12/02/18 15:31 Interpretation: Normal - General General appearance: Appears well, Alert - HEENT Head: Normocephalic, Atraumatic Eyes: Normal Pupils: PERRL - Respiratory Respiratory status: No respiratory distress Chest status: Nontender Breath sounds: Normal Chest palpation: Normal - Cardiovascular Rhythm: Regular Heart sounds: Normal auscultation Murmur: No - Abdominal Inspection: Normal Distension: No distension Bowel sounds: Normal Tenderness: Nontender Organomegaly: No organomegaly - Back Back: Normal, Nontender - Extremities General upper extremity: Normal inspection, Nontender, Normal color, Normal ROM, Normal temperature General lower extremity: Normal inspection, Nontender, Normal color, Normal ROM, Normal temperature, Normal weight bearing. No: Juan Jose's sign - Neurological Neuro grossly intact: Yes Cognition: Normal Orientation: AAOx4 [place] Coma Scale Eye Opening: Spontaneous [place] Coma Scale Verbal: Oriented [place] Coma Scale Motor: Obeys Commands Sia Coma Scale Total: 15 Speech: Normal Motor strength normal: LUE, RUE, LLE, RLE Sensory: Normal - Psychological Associated symptoms: Normal affect, Normal mood - Skin Skin Temperature: Warm Skin Moisture: Dry Skin Color: Normal Course - Re-evaluation Re-evalutation: 12/02/18 19:08 Patient presented with chest pain shortness of breath. No evidence of cardiac disease. No evidence of pulmonary embolism. No evidence of infection. I am unsure of the exact etiology of the shortness of breath and chest pain but I do believe the patient is safe for discharge home. - Vital Signs Vital signs: Temp Pulse Resp BP Pulse Ox 98.2 F 75 24 H 124/77 98 12/02/18 16:20 12/02/18 15:31 12/02/18 18:01 12/02/18 18:01 12/02/18 18:01 - Laboratory Result Diagrams: 12/02/18 16:00 12/02/18 16:00 Laboratory results interpreted by me: 12/02/18 12/02/18 16:00 16:00 MCV 99 H BUN 23 H Magnesium 2.4 H AST 70 H - Diagnostic Test Radiology reviewed: Image reviewed, Reports reviewed - EKG Interpretation by Me EKG shows normal: Sinus rhythm Rate: Normal - 75 Rhythm: NSR [place]/QRS: Left axis deviation Discharge - Discharge Clinical Impression: Chest pain Qualifiers: Chest pain type: unspecified Qualified Code(s): R07.9 - Chest pain, unspecified Condition: Stable Disposition: HOME, SELF-CARE Instructions: Chest Wall Pain ([facility]) Additional Instructions: Please call your primary care doctor or oncologist as soon as possible to arrange follow-up
[2018-12-02 19:13] VITALS: BP 117/67
--- NOTE | 2018-12-02 20:55 | EKG REPORT ---
SEVERITY:- ABNORMAL ECG - SINUS RHYTHM BORDERLINE LEFT AXIS DEVIATION NONSPECIFIC T ABNORMALITIES, INFERIOR LEADS : Confirmed by: Katie Cabrera MD 02-Dec-2018 20:54:25
== END 2018-12-02 19:00 | disposition home or self-care (01) ==
LOC: ER 15:18
DX: R07.9 Chest pain, unspecified (principal); C79.9 Secondary malignant neoplasm of unspecified site; J44.9 Chronic obstructive pulmonary disease, unspecified; R06.02 Shortness of breath
CPT/HCPCS: 36415; 71275; 80053; 82550; 82553; 83735; 83880; 84443; 84484; 85025; 85610; 85730; 93005; 93010

== ENCOUNTER 2019-01-01 13:53 | Emergency (ER) | payer OTHER ==
--- NOTE | 2019-01-01 14:17 | ER Document Report ---
ED Medical Screen (RME) - General Chief Complaint: Upper Abdominal Pain Stated Complaint: ABDOMINAL PAIN/LAB WORK Time Seen by Provider: 01/01/19 14:14 Mode of Arrival: Ambulatory Information source: Patient Notes: 63-year-old female presents to ED for complaint of upper abdominal pain. She states she does have some nausea and diarrhea but no vomiting. She started on a trial for cancer and she is taking the medication poziotimib 16 mg daily for 2 years she states she just started. she states that the clinical trial doctor told her that she could take Zofran if she wanted to. States that her primary doctor told her to come to the emergency room to get some blood work to make sure everything is okay. I have greeted and performed a rapid initial assessment of this patient. A comp rehensive ED assessment and evaluation of the patient, analysis of test results and completion of medical decision making process will be conducted by an additional ED providers. TRAVEL OUTSIDE OF THE [place] 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 Neurological Medical History: Denies: Hx Cerebrovascular Accident, Hx Seizures Renal/ Medical History: Denies: Hx Peritoneal Dialysis Musculoskeltal Medical History: Denies Hx Arthritis Past Surgical History: Reports: Hx Hysterectomy, Hx Orthopedic Surgery - Immunizations Hx Diphtheria, Pertussis, Tetanus Vaccination: Yes Physical Exam - Vital signs Vitals: Temp Pulse Resp BP Pulse Ox 97.3 F 72 18 137/89 H 99 01/01/19 14:05 01/01/19 14:05 01/01/19 14:05 01/01/19 14:05 01/01/19 14:05 Course - Vital Signs Vital signs: Temp Pulse Resp BP Pulse Ox 97.3 F 72 18 137/89 H 99 01/01/19 14:05 01/01/19 14:05 01/01/19 14:05 01/01/19 14:05 01/01/19 14:05
[2019-01-01 14:57] LABS: ABSOLUTE EOSINOPHILS # (AUTO) 0.3 10^3/uL (0.0-0.6); ABSOLUTE LYMPHOCYTES (AUTO) 2.1 10^3/uL (0.5-4.7); ABSOLUTE MONOCYTES (AUTO) 0.4 10^3/uL (0.1-1.4); ABSOLUTE NEUT (AUTO) 3.3 10^3/uL (1.7-8.2); BASOPHILS % (AUTO) 0.8 % (0-2); EOSINOPHILS % (AUTO) 5.1 % (0-6); HEMATOCRIT 43.9 % (36.0-47.0); HEMOGLOBIN 14.8 g/dL (12.0-15.5); LYMPHOCYTES % (AUTO) 34.5 % (13-45); MEAN CORPUSCULAR HEMOGLOBIN 32.4 pg (27.0-33.4); MEAN CORPUSCULAR HGB CONC 33.8 g/dL (32.0-36.0); MEAN CORPUSCULAR VOLUME 96 fl (80-97); MONOCYTES % (AUTO) 6.8 % (3-13); PLATELET COUNT 195 10^3/uL (150-450); RED BLOOD COUNT 4.58 10^6/uL (3.72-5.28); RED CELL DISTRIBUTION WIDTH 13.4 % (11.5-14.0); SEGMENTED NEUTROPHILS % (AUTO) 52.8 % (42-78); TOTAL CELLS COUNTED % (AUTO) 100 %; WHITE BLOOD COUNT 6.2 10^3/uL (4.0-10.5)
[2019-01-01 15:01] LABS: APPEARANCE,URINE CLEAR; BILIRUBIN,URINE NEGATIVE (NEGATIVE); COLOR,URINE YELLOW; GLUCOSE, URINE NEGATIVE (NEGATIVE); KETONES,URINE NEGATIVE (NEGATIVE); PROTEIN,URINE NEGATIVE (NEGATIVE); URINE SPECIFIC GRAVITY 1.014; UROBILINOGEN,URINE NEGATIVE mg/dL (<2.0)
[2019-01-01 15:16] LABS: ALBUMIN 4.1 g/dL (3.5-5.0); ALKALINE PHOSPHATASE 68 U/L (38-126); ANION GAP 8 (5-19); ASPARTATE AMINO TRANSFERASE 22 U/L (14-36); BILIRUBIN,DIRECT 0.2 mg/dL (0.0-0.4); BILIRUBIN,TOTAL 0.4 mg/dL (0.2-1.3); BLOOD UREA NITROGEN 19 mg/dL (7-20); CALCIUM 9.9 mg/dL (8.4-10.2); CARBON DIOXIDE 28 mmol/L (22-30); CHLORIDE 104 mmol/L (98-107); GLUCOSE 96 mg/dL (75-110); POTASSIUM 4.2 mmol/L (3.6-5.0); TOTAL PROTEIN 6.9 g/dL (6.3-8.2)
--- NOTE | 2019-01-01 16:28 | ER Document Report ---
ED General - General Chief Complaint: Abdominal Pain Stated Complaint: ABDOMINAL PAIN/LAB WORK Time Seen by Provider: 01/01/19 14:14 Mode of Arrival: Ambulatory Information source: Patient TRAVEL OUTSIDE OF THE [place] IN LAST 30 DAYS: No - HPI Notes: 63-year-old female presents the ED with complaints of epigastric pain for the last week. Patient recently started clinical trial medication for adenocarcinoma of her lung, her oncologist wanted her to come to the emergency room to get labs to make sure that her liver enzymes were not elevated. Patient states she is does have some nausea with starting this medication. Denies fevers, chills, chest pain,palpitations, shortness of breath, dyspnea, nausea, vomiting, diarrhea, abdominal pain, hematuria,blurred vision, double vision, loss of vision, speech changes, LH, dizziness, syncope, headaches, wheezing, ST, URI, neck pain, weakness, bowel or bladder dysfunction, saddle anesthesia, numbness or tingling in bilateral upper or lower extremities equally, muscle paralysis, weakness in bilateral upper or lower extremities equally or rash. - Related Data Allergies/Adverse Reactions: morphine Adverse Reaction (Verified 01/01/19 14:13) Past Medical History - General Information source: Patient - Social History Smoking Status: Never Smoker Chew tobacco use (# tins/day): No Frequency of alcohol use: None Family History: Reviewed & Not Pertinent Patient has suicidal ideation: No Patient has homicidal ideation: No - Past Medical History Cardiac Medical History: Denies: Hx Coronary Artery Disease, Hx Heart Attack, Hx Hypertension Pulmonary Medical History: Denies: Hx Asthma, Hx Bronchitis, Hx Pneumonia Comment Only: Hx 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, BX SATURDAY Neurological Medical History: Denies: Hx Cerebrovascular Accident, Hx Seizures Renal/ Medical History: Denies: Hx Peritoneal Dialysis Musculoskeletal Medical History: Denies Hx Arthritis Past Surgical History: Reports: Hx Hysterectomy, Hx Orthopedic Surgery - Immunizations Hx Diphtheria, Pertussis, Tetanus Vaccination: Yes Review of Systems - Review of Systems Constitutional: No symptoms reported EENT: No symptoms reported Cardiovascular: No symptoms reported Respiratory: No symptoms reported Gastrointestinal: See HPI Genitourinary: No symptoms reported Female Genitourinary: No symptoms reported Musculoskeletal: No symptoms reported Skin: No symptoms reported Hematologic/Lymphatic: No symptoms reported Neurological/Psychological: No symptoms reported Physical Exam - Vital signs Vitals: Temp Pulse Resp BP Pulse Ox 97.3 F 72 18 137/89 H 99 01/01/19 14:05 01/01/19 14:05 01/01/19 14:05 01/01/19 14:05 01/01/19 14:05 - Notes Notes: PHYSICAL EXAMINATION: reviewed vital signs by RN GENERAL: Well-appearing, well-nourished and in no acute distress. HEAD: Atraumatic, normocephalic. EYES: Pupils equal round and reactive to light, extraocular movements intact, conjunctiva are normal. ENT: Nares patent, oropharynx clear without exudates. Moist mucous membranes. NECK: Normal range of motion, supple without lymphadenopathy LUNGS: Breath sounds clear to auscultation bilaterally and equal. No wheezes rales or rhonchi. HEART: Regular rate and rhythm without murmurs ABDOMEN: Soft, epigastric tenderness nondistended abdomen. No guarding, no rebound. No masses appreciated. Female : deferred Musculoskeletal: Normal range of motion, no pitting or edema. No cyanosis. NEUROLOGICAL: Cranial nerves grossly intact. Normal speech, normal gait. Normal sensory, motor exams PSYCH: Normal mood, normal affect. SKIN: Warm, Dry, normal turgor, no rashes or lesions noted. Course - Re-evaluation Re-evalutation: 01/01/19 17:00 afebrile, vitals stable no distress. Nurse's notes reviewed. CBC negative for leukocytosis or anemia, CMP negative for hepatic or renal dysfunction, no electrolyte disturbances. Urinalysis unremarkable. Consulted with patient's oncologist regarding any concerning labs that they would want drawn, there was felt that the CBC, CMP, lipase and urinalysis were all normal as was advised and did not need any further diagnostic imaging. Patient being on a clinical medication, discussed starting omeprazole, oncologist was with this as well as Phenergan for nausea with her trial medication. After performing a Medical Screening Examination, I estimate there is LOW risk for ACUTE APPENDICITIS, BOWEL OBSTRUCTION, ACUTE CHOLECYSTITIS, PERFORATED DIVERTICULITIS, INCARCERATED HERNIA, PANCREATITIS, PELVIC INFLAMMATORY DISEASE, PERFORATED ULCER, ECTOPIC , or TUBO-OVARIAN ABSCESS, thus I consider the discharge disposition reasonable. Also, there is no evidence or peritonitis, sepsis, or toxicity. I have reevaluated this patient multiple times and no significant life threatening changes are noted. The patient and I have discussed the diagnosis and risks, and we agree with discharging home with close follow-up with the understanding that symptoms and presentations can change. We also discussed returning to the Emergency Department immediately if new or worsening symptoms occur. We have discussed the symptoms which are most concerning (e.g., bloody stool, fever, changing or worsening pain, vomiting) that necessitate immediate return. - Vital Signs Vital signs: Temp Pulse Resp BP Pulse Ox 97.3 F 72 18 137/89 H 99 01/01/19 14:05 01/01/19 14:05 01/01/19 14:05 01/01/19 14:05 01/01/19 14:05 - Laboratory Result Diagrams: 01/01/19 14:40 01/01/19 14:40 Discharge - Discharge Clinical Impression: Enrolled in clinical trial of drug, Adenocarcinoma Abdominal pain Qualifiers: Abdominal location: epigastric Qualified Code(s): R10.13 - Epigastric pain Condition: Stable Disposition: HOME, SELF-CARE Instructions: Abdominal Pain ([facility]), Antinausea Medication ([facility]), Prilosec (Acid Pump Inhibitor) ([facility]) Additional Instructions: Your lab work today was normal. Consider starting omeprazole 20 mg daily to prevent gastritis due to clinical trial medication as well as taking Phenergan as needed for antiemetic, your oncologist approved this medication. Please follow-up with your oncologist as well as primary care provider. Your provider which we spoke on the phone to do not feel it necessary to have any diagnostic imaging at this time. Return immediately for any new or worsening symptoms. Follow up with primary care provider, call tomorrow to make followup appointment. Referrals: GARRICK MANSFIELD MD [ACTIVE STAFF] - Follow up as needed
[2019-01-01 17:27] VITALS: BP 136/80
== END 2019-01-01 17:26 | disposition home or self-care (01) ==
LOC: ER 13:53
DX: R10.13 Epigastric pain (principal); C80.1 Malignant (primary) neoplasm, unspecified
CPT/HCPCS: 36415; 80053; 81001; 83690; 85025

== ENCOUNTER 2019-05-02 19:23 | Emergency (ER) | payer OTHER ==
[2019-05-02 21:25] VITALS: BP 157/99
[2019-05-02] MEDS ORDERED: NORMAL SALINE 1000 ML 1,000 ML IV ONE (21:46)
[2019-05-02] MEDS ORDERED: SUMATRIPTAN SUCCINATE INJ/PF 6 MG/0.5 ML SDV SUBCUT ONE ×2 (21:46→23:14)
[2019-05-02] MEDS ORDERED: PROMETHAZINE HCL INJ 25 MG/1 ML VIAL IV ONE (21:46)
[2019-05-02] MEDS ORDERED: HYDROMORPHONE HCL INJ/PF 2 MG/ML AMPULE IV ONE (23:15)
--- NOTE | 2019-05-02 23:16 | ER Document Report ---
Entered by UMA WEBSTER SCRIBE 05/02/192134 Acting as scribe for:SHERINE LEIGH IV, MD ED Headache - General Chief Complaint: Headache Stated Complaint: HEADACHE Time Seen by Provider: 05/02/19 21:33 Mode of Arrival: Medic Information source: Patient Notes: This 63 year old female patient with a history of migraines brought in by EMS presents to the ED today with complaints of a headache that started around 1330 today and has gotten progressively worse since onset. Patient states that "this is a migraine, I know it for a fact". Patient reports sensitivity to light and noise as well as nausea and vomiting. Patient states that she usually takes Imitrex to relieve the pain. Friend at bedside states that the patient took 20mg Oxycontin prior to arrival that provided no relief. Patient was diagnosed with a sinus infection today and started on medication around 1400. Patient is currently on chemotherapy for metastatic cancer of the lung, bone, and spine. TRAVEL OUTSIDE OF THE [place] IN LAST 30 DAYS: No - Related Data Allergies/Adverse Reactions: morphine Adverse Reaction (Verified 01/01/19 14:13) Home Medications: Compazine. Valtrex. Cymbalta. Folic Acid. Motrin. Prilosec. Olanzepine Past Medical History - General Information source: Patient, Emergency Med Personnel - Social History Smoking Status: Unknown if Ever Smoked Cigarette use (# per day): No Chew tobacco use (# tins/day): No Smoking Education Provided: No Family History: Reviewed & Not Pertinent Patient has suicidal ideation: No Patient has homicidal ideation: No Pulmonary Medical History: Comment Only: Hx 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, BX SATURDAY Past Surgical History: Reports: Hx Hysterectomy, Hx Orthopedic Surgery - Immunizations Hx Diphtheria, Pertussis, Tetanus Vaccination: Yes Review of Systems - Review of Systems Constitutional: No symptoms reported EENT: See HPI, Other - Light/noise sensitivity Cardiovascular: No symptoms reported Respiratory: No symptoms reported Gastrointestinal: See HPI, Nausea, Vomiting Genitourinary: No symptoms reported Female Genitourinary: No symptoms reported Musculoskeletal: No symptoms reported Skin: No symptoms reported Hematologic/Lymphatic: No symptoms reported Neurological/Psychological: See HPI, Headaches -: Yes All other systems reviewed and negative Physical Exam - Vital signs Vitals: Resp Pulse Ox 32 H 99 05/02/19 19:37 05/02/19 19:37 - General General appearance: Alert - HEENT Head: Normocephalic, Atraumatic Eyes: Normal, Other - Positive photophobia. Pupils: PERRL Neck: No: Meningismus - Respiratory Respiratory status: No respiratory distress Chest status: Nontender Breath sounds: Normal Chest palpation: Normal - Cardiovascular Rhythm: Regular Heart sounds: Normal auscultation Murmur: No Friction rub: No Gallop: None auscultated - Abdominal Inspection: Normal Distension: No distension Bowel sounds: Normal Tenderness: Nontender - Abdomen soft Organomegaly: No organomegaly - Back Back: Normal, Nontender - Extremities General upper extremity: Normal inspection General lower extremity: Normal inspection Notes: Movement in all extremities. - Neurological Neuro grossly intact: Yes Speech: Normal - Psychological Associated symptoms: Normal affect, Normal mood - Skin Skin Temperature: Warm Skin Moisture: Dry Skin Color: Normal Course - Re-evaluation Re-evalutation: 05/03/19 00:36 Patient states she is pain-free at this time. Emergency signs and symptoms, reasons to return to the emergency department discussed with patient. - Vital Signs Vital signs: Temp Pulse Resp BP Pulse Ox 97.9 F 15 157/99 H 94 05/02/19 19:44 05/03/19 00:00 05/02/19 21:18 05/02/19 23:00 Discharge - Discharge Clinical Impression: Migraine headache Qualifiers: Migraine type: unspecified Status migrainosus presence: without status migrainosus Intractability: not intractable Qualified Code(s): G43.909 - Migraine, unspecified, not intractable, without status migrainosus Condition: Good Disposition: HOME, SELF-CARE Instructions: Headache ([facility]) Additional Instructions: Return to the Emergency Department without delay if any worse. HOME CARE INSTRUCTIONS & INFORMATION: Thank you for choosing us for your medical needs. We hope you're satisfied with the care you received. After you leave, you must properly care for your problem and, at the same time, observe its progress. Any condition can change. Some illnesses can change rapidly over hours or days. If your condition worsens, return to the Emergency Department or see your physician promptly. ABOUT YOUR X-RAYS AND EKG'S: If you had an EKG or X-rays taken, they have been read by the Emergency Physician. The X-rays and EKG's will also be read by a Radiologist or Fish Stringer Assembler within 24 hours. If discrepancies are noted, you will be notified by telephone. Please be certain the ED has a correct telephone number & address where you can be reached. Also, realize that some fractures or abnormalities do not show up on initial X-rays. If your symptoms continue, see your physician. ABOUT YOUR LABORATORY TEST: If you had laboratory tests, the results have been reviewed by the Emergency Physician. Some test results (for example cultures) may not be available for several days. You will be contacted if any test result shows you need additional treatment. Please be certain the ED has a correct telephone number and address where you can be reached. ABOUT YOUR MEDICATIONS: You will receive instructions on how to take your medicine on the prescription label you receive. Additional information may be provided by the Pharmacy. If you have questions afterwards, call the ED for clarification or further instructions. Some prescribed medications may cause drowsiness. Do not perform tasks such as driving a car or operating machinery without consulting your Pharmacist. If you feel you need a refill of pain medic ation, your condition will need re-evaluation. Please do not call for a refill of any medication. ABOUT YOUR SIGNATURE: Signature of this document acknowledges to followin. Understanding that you received emergency treatment and that you may be released before al medical problems are known or treated. Please be certain the ED has a correct phone number & address where you can be reached. 2. Acknowledgement that you will arrange for follow-up care as recommended. 3. Authorization for the Emergency Physician to provide information to your follow-up Physician in order to maximize your care. AT ANY TIME, IF YOUR SYMPTOMS CHANGE SIGNIFICANTLY OR WORSEN OR YOU DEVELOP NEW SYMPTOMS, RETURN TO THE EMERGENCY DEPARTMENT IMMEDIATELY FOR RE-EVALUATION. OUR GOAL IS TO PROVIDE EXCELLENT MEDICAL CARE! WE HOPE THAT WE HAVE MET YOUR EXPECTATIONS DURING YOUR EMERGENCY DEPARTMENT VISIT AND THAT YOU FEEL YOU HAVE RECEIVED EXCELLENT CARE! Prescriptions: Sumatriptan Succinate [Imitrex Inj/Pf 6 Mg/0.5 Ml Sdv] 6 mg SUBCUT Q1HP PRN #12 vial PRN Reason: Migraine Referrals: BRIAN RUSSO MD [HONORARY] - Follow up as needed I personally performed the services described in the documentation, reviewed and edited the documentation which was dictated to the scribe in my presence, and it accurately records my words and actions.
== END 2019-05-03 00:52 | disposition home or self-care (01) ==
LOC: ER 19:23
DX: G43.909 Migraine, unspecified, not intractable, without status migrainosus (principal); H53.149 Visual discomfort, unspecified; R11.2 Nausea with vomiting, unspecified; J32.9 Chronic sinusitis, unspecified; C79.51 Secondary malignant neoplasm of bone; C78.00 Secondary malignant neoplasm of unspecified lung; Z79.899 Other long term (current) drug therapy; Z79.1 Long term (current) use of non-steroidal anti-inflammatories (NSAID)
CPT/HCPCS: 99284; 96372; 96361; 96374; 96375; J1170; J2550; J3030; J7030

== ENCOUNTER 2019-05-04 12:01 | Emergency (ER) | payer OTHER ==
[2019-05-04] MEDS ORDERED: METOCLOPRAMIDE HCL INJ/PF 10 MG/2 ML SDV IV ONE (12:25)
--- NOTE | 2019-05-04 12:27 | ER Document Report ---
ED Medical Screen (RME) - General Chief Complaint: Headache >24 hrs old Stated Complaint: HEADACHE,NAUSEA,BACK PAIN Time Seen by Provider: 05/04/19 12:13 Notes: Patient is a 63-year-old female with a history of metastatic adenocarcinoma who presents to the emergency department with a headache. She was seen here in the emergency department 2 days ago, but still has not had relief of her symptoms. Patient is currently taking Imitrex and states that the Imitrex is not helping her. Admits to photophobia. She is followed by [facility] for oncology. Exam: Alert and oriented. I have greeted and performed a rapid initial assessment of this patient. A comprehensive ED assessment and evaluation of the patient, analysis of test results and completion of medical decision making process will be conducted by an additional ED providers. TRAVEL OUTSIDE OF THE [place] 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
[2019-05-04 12:55] LABS: ABSOLUTE LYMPHOCYTES (AUTO) 1.4 10^3/uL (0.5-4.7); ABSOLUTE MONOCYTES (AUTO) 0.4 10^3/uL (0.1-1.4); ABSOLUTE NEUT (AUTO) 1.3 10^3/uL (1.7-8.2); EOSINOPHILS % (AUTO) 0.6 % (0-6); HEMOGLOBIN 14.4 g/dL (12.0-15.5); TOTAL CELLS COUNTED % (AUTO) 100 %; WHITE BLOOD COUNT 3.2 10^3/uL (4.0-10.5)
[2019-05-04 13:01] LABS: BASOPHILS % (AUTO) 0.4 % (0-2); HEMATOCRIT 40.7 % (36.0-47.0); LYMPHOCYTES % (AUTO) 43.3 % (13-45); MEAN CORPUSCULAR HEMOGLOBIN 34.6 pg (27.0-33.4); MEAN CORPUSCULAR HGB CONC 35.3 g/dL (32.0-36.0); MEAN CORPUSCULAR VOLUME 98 fl (80-97); MONOCYTES % (AUTO) 13.9 % (3-13); PLATELET COUNT 222 10^3/uL (150-450); RED BLOOD COUNT 4.16 10^6/uL (3.72-5.28); RED CELL DISTRIBUTION WIDTH 14.6 % (11.5-14.0); SEGMENTED NEUTROPHILS % (AUTO) 41.8 % (42-78)
[2019-05-04 13:11] LABS: ALBUMIN 4.3 g/dL (3.5-5.0); ALKALINE PHOSPHATASE 70 U/L (38-126); ANION GAP 7 (5-19); ASPARTATE AMINO TRANSFERASE 95 U/L (14-36); BILIRUBIN,DIRECT 0.1 mg/dL (0.0-0.4); BILIRUBIN,TOTAL 0.4 mg/dL (0.2-1.3); BLOOD UREA NITROGEN 18 mg/dL (7-20); CALCIUM 10.4 mg/dL (8.4-10.2); CARBON DIOXIDE 28 mmol/L (22-30); CHLORIDE 104 mmol/L (98-107); GLUCOSE 99 mg/dL (75-110); POTASSIUM 4.3 mmol/L (3.6-5.0); TOTAL PROTEIN 7.3 g/dL (6.3-8.2)
[2019-05-04] MEDS ORDERED: ONDANSETRON HCL INJ/PF 4 MG/2 ML SDV IV ONE (13:24)
[2019-05-04] MEDS ORDERED: HYDROMORPHONE HCL INJ/PF 2 MG/ML AMPULE IV ONE ×3 (13:24→18:30)
[2019-05-04 13:32] LABS: APPEARANCE,URINE CLEAR; BILIRUBIN,URINE NEGATIVE (NEGATIVE); COLOR,URINE YELLOW; GLUCOSE, URINE NEGATIVE (NEGATIVE); KETONES,URINE NEGATIVE (NEGATIVE); LEUKOCYTE ESTERASE,URINE NEGATIVE (NEGATIVE); NITRITE,URINE NEGATIVE (NEGATIVE); PROTEIN,URINE NEGATIVE (NEGATIVE); URINE SPECIFIC GRAVITY 1.011; UROBILINOGEN,URINE NEGATIVE mg/dL (<2.0)
[2019-05-04 14:38] LABS: INTERNATIONAL RATION (INR) 0.91; PROTHROMBIN TIME 12.3 SEC (11.4-15.4)
--- NOTE | 2019-05-04 14:58 | RADIOLOGY REPORT (SQ) ---
EXAM DESCRIPTION: CT HEAD WITH COMPLETED DATE/TIME: 05/04/2019 1:47 pm REASON FOR STUDY: metastatic adenocarc/severe navarro. Lung cancer. COMPARISON: None. TECHNIQUE: Axial images acquired through the brain with intravenous contrast. Images reviewed with b one, brain and subdural windows. Additional sagittal and coronal reconstructions were generated. Vickie ges stored on PACS. All CT scanners at this facility use dose modulation, iterative reconstruction, and/or weight based d osing when appropriate to reduce radiation dose to as low as reasonably achievable (ALARA). [facility]: Dose Right [facility]: CareDose [facility]: Dose Right [facility]: Teradose 4D [facility]: Mobile Captain CONTRAST TYPE AND DOSE: contrast/concentration: Isovue 350.00 mg/ml; Total Contrast Delivered: 50.0 ml; Total Saline Delivered: 46.3 ml RENAL FUNCTION: GFR > 60. RADIATION DOSE: CT Rad equipment meets quality standard of care and radiation dose reduction techniq ues were employed. CTDIvol: 53.2 mGy. DLP: 1955 mGy-cm.. LIMITATIONS: None. FINDINGS: VENTRICLES: Normal size and contour. CEREBRUM: No masses. No hemorrhage. No midline shift. Normal amaro/white matter differentiation. No ev idence for acute infarction. No enhancing lesions. CEREBELLUM: No masses. No hemorrhage. No alteration of density. No evidence for acute infarction. No enhancing lesions. EXTRA-AXIAL SPACES: No fluid collections. No enhancing lesions. ORBITS AND GLOBE: No intra- or extraconal masses. Normal contour of globe without masses. CALVARIUM: No fracture. PARANASAL SINUSES: No fluid or mucosal thickening. SOFT TISSUES: No mass or hematoma. OTHER: No other significant finding. IMPRESSION: No acute intracranial hemorrhage, mass, or evidence of acute territorial infarct. No ev idence of intracranial metastasis. EVIDENCE OF ACUTE STROKE: NO. TECHNICAL DOCUMENTATION: JOB ID: [id number] Quality ID # 436: Final reports with documentation of one or more dose reduction techniques (e.g., Au tomated exposure control, adjustment of the mA and/or kV according to patient size, use of iterative reconstruction technique) 2010 [employer]- All Rights Reserved Reading location - IP/workstation name: [email or web address]
[2019-05-04 16:51] LABS: COLOR ALL TUBES COLORLESS; CSF TUBE NUMBER 1; GLUCOSE,CSF 55 mg/dL (40-70); PROTEIN,CSF 47 mg/dL (12-60)
[2019-05-04 16:52] LABS: APPEARANCE ALL TUBES CLEAR; VOLUME TUBE 2 4.5 CC
[2019-05-04 16:53] LABS: CSF TOTAL VOLUME 17.5 CC; RED BLOOD CELL,CSF 18 /uL (0-10)
[2019-05-04 16:54] LABS: WHITE BLOOD CELL,CSF 2 /uL (0-5)
[2019-05-04 16:56] LABS: CSF TOTAL VOLUME 17.5 CC; RED BLOOD CELL,CSF 1 /uL (0-10); VOLUME TUBE 2 4.5 CC
[2019-05-04 16:57] LABS: WHITE BLOOD CELL,CSF 0 /uL (0-5)
[2019-05-04 16:58] LABS: APPEARANCE ALL TUBES CLEAR; COLOR ALL TUBES COLORLESS; CSF TUBE NUMBER 4
--- NOTE | 2019-05-04 16:58 | RADIOLOGY REPORT (SQ) ---
EXAM DESCRIPTION: LUMBAR PUNCTURE COMPLETED DATE/TIME: 05/04/2019 4:47 pm REASON FOR STUDY: mets ca/on chemo/severe navarro COMPARISON: None. FLUOROSCOPY TIME: 0.5 minutes. 1 image submitted to PACS. TECHNIQUE: Fluoroscopic Guided Lumbar Puncture. LIMITATIONS: None. PROCEDURE: After written consent and assessment were obtained, the patient was brought into the fluo roscopy room and placed prone on the table. The patient's lower back was prepped in a sterile fashion and an entry site was selected under live fluoroscopic guidance. The entry site was anesthetized wit h 1% lidocaine. A 20 gauge needle was advanced through the skin and into the thecal sac at the level of L 3 -L 4 . An opening pressure of 28 units was obtained. After approximately 18 ml of CSF was drai darnell, a closing pressure of 21 units was obtained. The needle was removed and a sterile bandage was pl aced of the site. Specimens were sent to the lab for testing. A fluoroscopic spot image was saved to PACS confirming level access. FINDINGS: Clear CSF. IMPRESSION: Successful fluoroscopic guided lumbar puncture. COMMENT: Patient medication list reviewed: Yes- Quality ID# 130:Eligible professional attests to doc umenting in the medical record they obtained, updated, or reviewed the patient's current medications. Quality ID 145: Final reports for procedures using fluoroscopy that document radiation exposure indic es, or exposure time and number of fluorographic images (if radiation exposure indices are not availa ble) TECHNICAL DOCUMENTATION: Job ID: [id number] 2010 [employer]- All Rights Reserved Reading location - IP/workstation name: [email or web address]
--- NOTE | 2019-05-04 18:12 | ER Document Report ---
ED General - General Chief Complaint: Headache >24 hrs old Stated Complaint: HEADACHE,NAUSEA,BACK PAIN Time Seen by Provider: 05/04/19 12:13 Information source: Patient TRAVEL OUTSIDE OF THE [place] IN LAST 30 DAYS: No - HPI Notes: Patient with metastatic adenocarcinoma presents with severe headache. She states this is been going on for 3 days. It is constant. It is worse with movement and better with rest. It does radiate into her neck. No fevers. Some nausea no significant vomiting or diarrhea. She has had a rash for about a week. Patient describes a headache it is sharp and throbbing. She last received chemotherapy on April 17, 2019. No recent radiation. No recent falls or trauma. She was recently treated for a sinus infection but is finished the antibiotics. 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 Neurological Medical History: Denies: Hx Cerebrovascular Accident, Hx Seizures Renal/ Medical History: Denies: Hx Peritoneal Dialysis Musculoskeletal Medical History: Denies Hx Arthritis Past Surgical History: Reports: Hx Hysterectomy, Hx Orthopedic Surgery - Immunizations Hx Diphtheria, Pertussis, Tetanus Vaccination: Yes Review of Systems - Review of Systems Constitutional: denies: Chills, Fever Cardiovascular: denies: Chest pain, Palpitations Respiratory: denies: Cough, Short of breath -: Yes All other systems reviewed and negative Physical Exam - Vital signs Interpretation: Normal - General General appearance: Appears well, Alert - HEENT Head: Normocephalic, Atraumatic Eyes: Normal Pupils: PERRL - Respiratory Respiratory status: No respiratory distress Chest status: Nontender Breath sounds: Normal Chest palpation: Normal - Cardiovascular Rhythm: Regular Heart sounds: Normal auscultation Murmur: No - Abdominal Inspection: Normal Distension: No distension Bowel sounds: Normal Tenderness: Nontender Organomegaly: No organomegaly - Back Back: Normal, Nontender - Extremities General upper extremity: Normal inspection, Nontender, Normal color, Normal ROM, Normal temperature General lower extremity: Normal inspection, Nontender, Normal color, Normal ROM, Normal temperature, Normal weight bearing. No: Juan Jose's sign - Neurological Neuro grossly intact: Yes Cognition: Normal Orientation: AAOx4 [place] Coma Scale Eye Opening: Spontaneous [place] Coma Scale Verbal: Oriented [place] Coma Scale Motor: Obeys Commands [place] Coma Scale Total: 15 Speech: Normal Motor strength normal: LUE, RUE, LLE, RLE Sensory: Normal - Psychological Associated symptoms: Normal affect, Normal mood - Skin Skin Temperature: Warm Skin Moisture: Dry Skin Color: Other - Has a scattered macular rash on the bilateral upper extremities and trunk. There are approximately 10 lesions in total that are somewhat excoriated as patient states they are itching. Course - Re-evaluation Re-evalutation: 05/04/19 18:09 Patient presented with severe headache going into her neck. A LP was done and shows no evidence of infection or occult hemorrhage. Head CT reveals no evidence of metastatic disease or other significant cranial normality. Patient is improved after IV Dilaudid. She is comfortable with discharge and prefers this. There is no focal deficits at this time. - Laboratory Result Diagrams: 05/04/19 12:45 05/04/19 12:45 Laboratory results interpreted by me: 05/04/19 05/04/19 12:45 12:45 WBC 3.2 L MCV 98 H MCH 34.6 H RDW 14.6 H [place] % (Auto) 13.9 H Absolute Neuts (auto) 1.3 L Seg Neutrophils % 41.8 L Calcium 10.4 H AST 95 H ALT 174 H - Diagnostic Test Radiology reviewed: Image reviewed, Reports reviewed Discharge - Discharge Clinical Impression: Metastatic adenocarcinoma Headache Qualifiers: Headache type: unspecified Headache chronicity pattern: acute headache Intractability: intractable Qualified Code(s): R51 - Headache Condition: Stable Disposition: HOME, SELF-CARE Instructions: Headache ([facility]) Additional Instructions: Please follow-up with your oncologist as directed. Please follow-up with Dr. Finley as needed. Referrals: MARS FINLEY MD [ACTIVE STAFF] - Follow up in 3-5 days
[2019-05-04 18:47] VITALS: BP 155/92
== END 2019-05-04 18:49 | disposition home or self-care (01) ==
LOC: ER 12:01
DX: C79.9 Secondary malignant neoplasm of unspecified site (principal); R51 Headache; R11.0 Nausea; R21 Rash and other nonspecific skin eruption; H53.149 Visual discomfort, unspecified; Z88.6 Allergy status to analgesic agent; Z90.710 Acquired absence of both cervix and uterus
CPT/HCPCS: 96376; 99284; 96374; 96375; 36415; 87070; 87205; 85025; 85610; 89050; 82945; 84157; 80053; 81001; 62328; 70460; J2765; J1170; J2405

== ENCOUNTER 2019-08-19 23:33 | Emergency (ER) | payer OTHER ==
[2019-08-19 23:42] VITALS: BP 159/106
[2019-08-19] MEDS ORDERED: METOCLOPRAMIDE HCL INJ/PF 10 MG/2 ML SDV IV ONE (23:45)
[2019-08-19] MEDS ORDERED: MORPHINE SULFATE 10 MG/ML INJ IV ONE (23:46)
[2019-08-19] MEDS ORDERED: RINGERS SOLUTION,LACTATED 1,000 ML IV ONE (23:46)
--- NOTE | 2019-08-19 23:50 | ER Document Report ---
ED Medical Screen (RME) - General Stated Complaint: HEADACHE VOMITTING CANCER PT Time Seen by Provider: 08/19/19 23:44 Mode of Arrival: Wheelchair Information source: Patient, Relative Notes: HPI; 63-year-old female past medical history significant for hypertension lung cancer currently undergoing chemo presents to the emergency room complaining of a persistent headache for the past 3 weeks. Complains of nausea vomiting. States is unable to tolerate anything p.o. States she is been trying to take her oxycodone on Zofran without relief. States the headache is worse tonight. Denies any head trauma or head injury. PE: Alert and oriented x3. Obvious distress noted. PERRLA, EOMI. Neurovascularly intact. Negative fast exam. I have greeted and performed a rapid initial assessment of this patient. A comp rehensive ED assessment and evaluation of the patient, analysis of test results and completion of the medical decision making process will be conducted by additional ED providers. I have specifically instructed the patient or family members with the patient to immediately return to any nursing staff should anything change in the patient's condition or with their chief complaint. TRAVEL OUTSIDE OF THE [place] 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 Neurological Medical History: Denies: Hx Cerebrovascular Accident, Hx Seizures Renal/ Medical History: Denies: Hx Peritoneal Dialysis Musculoskeltal Medical History: Denies Hx Arthritis Past Surgical History: Reports: Hx Hysterectomy, Hx Orthopedic Surgery - Immunizations Hx Diphtheria, Pertussis, Tetanus Vaccination: Yes Physical Exam - Vital signs Vitals: Temp Pulse Resp BP Pulse Ox 97.6 F 98 16 159/106 H 97 08/19/19 23:41 08/19/19 23:41 08/19/19 23:41 08/19/19 23:41 08/19/19 23:41 Course - Vital Signs Vital signs: Temp Pulse Resp BP Pulse Ox 97.6 F 98 16 159/106 H 97 08/19/19 23:41 08/19/19 23:41 08/19/19 23:41 08/19/19 23:41 08/19/19 23:41
[2019-08-20] MEDS ORDERED: METOCLOPRAMIDE HCL INJ/PF 10 MG/2 ML SDV ONE (02:39)
[2019-08-20 02:53] LABS: ABSOLUTE LYMPHOCYTES (AUTO) 0.7 10^3/uL (0.5-4.7); ABSOLUTE MONOCYTES (AUTO) 0.4 10^3/uL (0.1-1.4); ABSOLUTE NEUT (AUTO) 4.1 10^3/uL (1.7-8.2); BASOPHILS % (AUTO) 0.8 % (0-2); HEMATOCRIT 41.4 % (36.0-47.0); HEMOGLOBIN 14.7 g/dL (12.0-15.5); LYMPHOCYTES % (AUTO) 13.6 % (13-45); MEAN CORPUSCULAR HEMOGLOBIN 37.4 pg (27.0-33.4); MEAN CORPUSCULAR HGB CONC 35.5 g/dL (32.0-36.0); MEAN CORPUSCULAR VOLUME 106 fl (80-97); MONOCYTES % (AUTO) 6.9 % (3-13); PLATELET COUNT 299 10^3/uL (150-450); RED BLOOD COUNT 3.92 10^6/uL (3.72-5.28); SEGMENTED NEUTROPHILS % (AUTO) 78.7 % (42-78); TOTAL CELLS COUNTED % (AUTO) 100 %; WHITE BLOOD COUNT 5.2 10^3/uL (4.0-10.5)
[2019-08-20] MEDS ORDERED: DIPHENHYDRAMINE HCL 50 MG/ML VIAL IV ONE (02:57)
[2019-08-20] MEDS ORDERED: MORPHINE SULFATE 10 MG/ML INJ IV ONE (02:57)
--- NOTE | 2019-08-20 02:59 | ER Document Report ---
ED General - General Chief Complaint: Headache Stated Complaint: HEADACHE VOMITTING CANCER PT Time Seen by Provider: 08/19/19 23:44 Mode of Arrival: Wheelchair Notes: Patient is a 63-year-old female that comes emergency department for chief complaint of a headache for the past several days, she reports she also has pain in her neck which is throbbing, she states that she has vomited several times today because of the headache. The headache is intermittent recently, patient has a history of lung cancer with metastasis including to the sacral/lumbar spine. She denies metastasis to neck or brain. She denies fever, injury, focal numbness or weakness, incontinence. She is not on blood thinner. She follows with [facility] and currently is on chemotherapy, she has already completed radiation. TRAVEL OUTSIDE OF THE [place] IN LAST 30 DAYS: No - Related Data Allergies/Adverse Reactions: morphine Adverse Reaction (Verified 08/20/19 02:29) Nausea Past Medical History - General Information source: Patient, Relative - Social History Smoking Status: Never Smoker Frequency of alcohol use: None Drug Abuse: None Family History: Reviewed & Not Pertinent Patient has homicidal ideation: No - Past Medical History Cardiac Medical History: Denies: Hx Coronary Artery Disease, Hx Heart Attack, Hx Hypertension Pulmonary Medical History: Denies: Hx Asthma, Hx Bronchitis, Hx Pneumonia Comment Only: Hx 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, BX SATURDAY Neurological Medical History: Denies: Hx Cerebrovascular Accident, Hx Seizures Renal/ Medical History: Denies: Hx Peritoneal Dialysis Musculoskeletal Medical History: Denies Hx Arthritis Past Surgical History: Reports: Hx Hysterectomy, Hx Orthopedic Surgery - Immunizations Hx Diphtheria, Pertussis, Tetanus Vaccination: Yes Review of Systems - Review of Systems Constitutional: No symptoms reported EENT: No symptoms reported Cardiovascular: No symptoms reported Respiratory: No symptoms reported Gastrointestinal: No symptoms reported Genitourinary: No symptoms reported Female Genitourinary: No symptoms reported Musculoskeletal: See HPI Skin: No symptoms reported Hematologic/Lymphatic: No symptoms reported Neurological/Psychological: See HPI Physical Exam - Vital signs Vitals: Temp Pulse Resp BP Pulse Ox 97.6 F 98 16 159/106 H 97 08/19/19 23:41 08/19/19 23:41 08/19/19 23:41 08/19/19 23:41 08/19/19 23:41 - Notes Notes: GENERAL: Alert, interacts well. No acute distress. HEAD: Normocephalic, atraumatic. EYES: Pupils equal, round, and reactive to light. Extraocular movements intact. Some photophobia noted ENT: Oral mucosa moist, tongue midline. Oropharynx unremarkable. Airway patent. NECK: Full range of motion. Supple. Trachea midline. No lymphadenopathy. No nuchal rigidity. LUNGS: Clear to auscultation bilaterally, no wheezes, rales, or rhonchi. No respiratory distress. Non-tender chest wall. HEART: Regular rate and rhythm. No murmur ABDOMEN: Soft, non-tender. Non-distended. EXTREMITIES: Moves all 4 extremities spontaneously. No edema, normal radial and dorsalis pedis pulses bilaterally. No cyanosis. BACK: Some generalized tenderness over the neck including paraspinal and cervical areas. No thoracic, lumbar midline tenderness. No saddle anesthesia, normal distal neurovascular exam. Moves all extremities in full range of motion. NEUROLOGICAL: Alert and oriented x3. Normal speech. Cranial nerves II through XII grossly intact. Strength 5/5 in all extremities. PSYCH: Normal affect, normal mood. SKIN: Warm, dry, normal turgor. No rashes or lesions noted. Course - Re-evaluation Re-evalutation: Patient with generalized pain over the neck, however she has no nuchal rigidity, no neurological deficits, no trauma. There is no metastasis on imaging of the neck or head. Patient was treated with Reglan, Benadryl, morphine on request here and on reevaluation she is smiling, states appreciation, states her headache and neck pain are completely resolved. She states she has been getting these frequently since March and this is the treatment that helps the most. I did review her work-up otherwise including laboratory work-up and this was nonspecific. Vital signs unremarkable. Patient is requesting discharge, she has a follow-up within 24 hours with her provider. She does have some patchy appearance of the upper lung on imaging but patient states this is chronic, she did request her images however and she was provided with a CD and report to take to her provider in close follow-up. Patient states she is actually planning on stopping chemotherapy and she is comfortable with this decision. She states her will be here in 15 minutes and she is requesting immediate discharge. Discussed return precautions and follow-up details. Patient states appreciation and agreement. - Vital Signs Vital signs: Temp Pulse Resp BP Pulse Ox 97.6 F 98 16 159/106 H 97 08/20/19 00:03 08/19/19 23:41 08/19/19 23:41 08/19/19 23:41 08/19/19 23:41 - Laboratory Result Diagrams: 08/20/19 02:37 08/20/19 02:37 Laboratory results interpreted by me: 08/20/19 08/20/19 02:37 02:37 MCV 106 H MCH 37.4 H Seg Neutrophils % 78.7 H BUN 24 H Creatinine 1.55 H Est GFR ( Amer) 41 L Est GFR (MDRD) Non-Af 34 L Glucose 130 H Calcium 10.5 H AST 58 H ALT 92 H Discharge - Discharge Clinical Impression: Headache Qualifiers: Headache type: unspecified Headache chronicity pattern: acute headache Intractability: not intractable Qualified Code(s): R51 - Headache Condition: Stable Disposition: HOME, SELF-CARE Additional Instructions: Your imaging does not show new spread or concerning finding, your evaluation is reassuring. Please follow-up with your provider tomorrow with your imaging and reports. Return for any concerning symptoms including return headache, fever, vomiting, or any other concerning or worsening symptoms.
[2019-08-20 03:01] LABS: INTERNATIONAL RATION (INR) 0.96; PROTHROMBIN TIME 12.8 SEC (11.4-15.4)
[2019-08-20 03:04] LABS: ALBUMIN 4.8 g/dL (3.5-5.0); ALKALINE PHOSPHATASE 103 U/L (38-126); ANION GAP 11 (5-19); ASPARTATE AMINO TRANSFERASE 58 U/L (14-36); BILIRUBIN,DIRECT 0.1 mg/dL (0.0-0.4); BILIRUBIN,TOTAL 0.6 mg/dL (0.2-1.3); BLOOD UREA NITROGEN 24 mg/dL (7-20); CALCIUM 10.5 mg/dL (8.4-10.2); CARBON DIOXIDE 24 mmol/L (22-30); CHLORIDE 104 mmol/L (98-107); GLUCOSE 130 mg/dL (75-110); POTASSIUM 4.6 mmol/L (3.6-5.0); TOTAL PROTEIN 8.2 g/dL (6.3-8.2)
--- NOTE | 2019-08-20 04:26 | RADIOLOGY REPORT (SQ) ---
INDICATION: headache. Neck pain. Reported history of metastatic carcinoma, details not provided COMPARISON: None CORRELATION: None TECHNIQUE: Noncontrast spiral axial CT images were obtained from the skull base to vertex. Noncontrast spiral axial CT imaging through the cervical spine with multiplanar reconstructions. This exam was performed according to our departmental dose-optimization program, which includes automated exposure control, adjustment of the mA and/or kV according to patient size and/or use of iterative reconstruction techniques. FINDINGS: BRAIN: There is no evidence of acute intracranial hemorrhage, midline shift, mass effect or mass lesion. Vora-white differentiation is normal. There is no evidence of acute large territory infarct. Ventricles and extracerebral spaces are within normal limits, for age. The visualized paranasal sinuses are grossly clear. The orbits and eyeballs are unremarkable. The mastoid air cells are clear. Skull base and calvarium appear intact. CERVICAL SPINE: No acute displaced fracture is identified of the cervical spine. Alignment is anatomic. No focal alignment abnormality is identified. The uncovertebral joints and facets are within normal limits, for age. Fusion of C5 and C6 Surrounding soft tissues of the neck are unremarkable. Patchy airspace disease left upper lobe, unknown chronicity. IMPRESSION: No acute intracranial process is identified. No acute bony injury is seen to the cervical spine. Osteoarthritis. Patchy airspace disease left upper lobe, unknown chronicity
== END 2019-08-20 05:20 | disposition home or self-care (01) ==
LOC: ER 23:33
DX: R51 Headache (principal); R11.10 Vomiting, unspecified; M54.2 Cervicalgia; Z79.899 Other long term (current) drug therapy; Z88.8 Allergy status to other drugs, medicaments and biological substances
CPT/HCPCS: 99284; 96374; 96375; 36415; 85025; 85610; 80053; 70450; 72125; J1200; J2765; J2270; J7120

== ENCOUNTER 2019-09-07 16:19 | Emergency (ER) | payer OTHER ==
[2019-09-07] MEDS ORDERED: ONDANSETRON HCL INJ/PF 4 MG/2 ML SDV IV ONE (19:32)
[2019-09-07] MEDS ORDERED: MORPHINE SULFATE 10 MG/ML INJ IV ONE ×2 (19:35→22:38)
[2019-09-07] MEDS ORDERED: DIPHENHYDRAMINE HCL 50 MG/ML VIAL IV ONE (19:40)
--- NOTE | 2019-09-07 20:18 | ER Document Report ---
ED General - General Chief Complaint: Headache Stated Complaint: HEADACHE,CHILLS,VOMITING Time Seen by Provider: 09/07/19 19:11 Primary Care Provider: WAN HOU MD [Primary Care Provider] - Follow up as needed TRAVEL OUTSIDE OF THE [place] IN LAST 30 DAYS: No - HPI Notes: Chief complaint: Nausea vomiting headache and neck pain History of present illness: 63-year-old female being followed at [facility] with a history of lung CA with bony metastases to the lumbar area of the spine presenting today for recurrent symptoms of nausea, vomiting, headache and neck pain. Seen for same here 3 weeks ago. She had a negative noncontrast head CT at that time and improved with symptomatic treatment with IV fluids and antiemetics. She took some Reglan during that visit got a mild dystonic reaction says she never wants to take that medication again. She has been back to see her docs at [facility] and they have discontinued her chemotherapy feeling that her current symptoms are most likely related to the chemotherapy she was receiving. She denies fever. Her physicians at [facility] have performed a brain MRI since her last visit here and they report no metastatic disease on this study. Patient says she has been vomiting is had difficulty keeping meds down within the last 2 to 3 days. She is basically coming in requesting some symptomatic treatment for her ongoing headache and nausea. She also notes she has had surgical hardware in her neck for years and whenever she gets dehydrated and has vomiting she often has pain in this area as well. 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 HENT: Negative for sore throat. Eyes: Negative for visual changes. Cardiovascular: Negative for chest pain. Respiratory: Negative for shortness of breath. Gastrointestinal: As per HPI. Genitourinary: Negative for dysuria. Musculoskeletal: As per HPI. Skin: Negative for rash. Neurological: N as per HPI. 10 point ROS negative except as marked above and in HPI. Physical Exam - Vital signs Vitals: Temp Pulse Resp BP Pulse Ox 97.7 F 105 H 22 H 149/109 H 95 09/07/19 17:19 09/07/19 17:19 09/07/19 17:19 09/07/19 17:19 09/07/19 17:19 - Notes Notes: Remote Exam Using Telemedicine System for mitigation of COVID-19 risk GENERAL: Female patient approximately stated age appearing mildly dehydrated. SKIN: no rashes. HEAD: Normocephalic atraumatic. EYES: PERRL. EOMI. Conjunctivae and sclerae clear. NOSE: CLEAR. MOUTH: Moist mucosa. Good dentition. No stridor or edema. No drooling. NECK: Full ROM. No visible masses or thyromegaly. No JVD. BACK: Symmetrical. CHEST: Respirations unlabored. Expands symmetrical. ABDOMEN: Non-distended. GENITALIA: Deferred. EXTREMITIES: No edema. NEUROLOGICAL: GCS 15. Alert and oriented x3. Fluent speech. Cranial nerves II through XII intact. Motor and cerebellar normal. PSYCHIATRIC: Appropriate affect. Course - Re-evaluation Re-evalutation: 09/07/19 21:47 Patient primarily appears to be dehydrated. She got 2 L normal saline here and she got some IV Zofran and 1 dose of morphine for her chronic/persistent headache. On reexam at this time she is totally asymptomatic and is tolerating oral fluids. Her chest x-ray shows previously identified mediastinal mass for which she is being treated at [facility]. She is afebrile here and hemodynamically stable and I think she is fine to go home and follow-up with her physicians at [facility] by telephone tomorrow morning. She already has medications for pain and nausea at home. Findings, clinical impression and plan of treatment have been discussed with patient/family. Understanding of current findings and recommendations has been acknowledged by them and there is agreement regarding disposition and follow-up. - Vital Signs Vital signs: Temp Pulse Resp BP Pulse Ox 98.9 F 76 20 163/97 H 96 09/07/19 21:25 09/07/19 21:25 09/07/19 21:25 09/07/19 21:25 09/07/19 21:25 - Laboratory Result Diagrams: 09/07/19 20:15 09/07/19 20:15 Laboratory results interpreted by me: 09/07/19 09/07/19 20:15 20:15 MCV 104 H MCH 36.5 H BUN 22 H Creatinine 1.33 H Est GFR ( Amer) 49 L Est GFR (MDRD) Non-Af 41 L AST 53 H ALT 40 H Discharge - Discharge Clinical Impression: Dehydration, Vomiting, Headache, Lung CA Condition: Stable Disposition: HOME, SELF-CARE Additional Instructions: Increase oral fluids. Continue your current medications. Return here as needed for new or worsening symptoms. Contact your treating physicians at [facility] by telephone tomorrow morning to arrange further follow-up in the clinic there. Referrals: WAN HOU MD [Primary Care Provider] - Follow up as needed
[2019-09-07] MEDS: NORMAL SALINE 1000 ML 1,000 ML IV PRN ×2 (20:22→21:40)
[2019-09-07 20:45] LABS: ABSOLUTE EOSINOPHILS # (AUTO) 0.1 10^3/uL (0.0-0.6); ABSOLUTE LYMPHOCYTES (AUTO) 1.5 10^3/uL (0.5-4.7); ABSOLUTE MONOCYTES (AUTO) 0.6 10^3/uL (0.1-1.4); BASOPHILS % (AUTO) 0.6 % (0-2); EOSINOPHILS % (AUTO) 0.9 % (0-6); HEMATOCRIT 43.6 % (36.0-47.0); HEMOGLOBIN 15.2 g/dL (12.0-15.5); LYMPHOCYTES % (AUTO) 24.6 % (13-45); MEAN CORPUSCULAR HEMOGLOBIN 36.5 pg (27.0-33.4); MEAN CORPUSCULAR HGB CONC 34.9 g/dL (32.0-36.0); MEAN CORPUSCULAR VOLUME 104 fl (80-97); MONOCYTES % (AUTO) 9.4 % (3-13); PLATELET COUNT 224 10^3/uL (150-450); RED BLOOD COUNT 4.17 10^6/uL (3.72-5.28); RED CELL DISTRIBUTION WIDTH 13.9 % (11.5-14.0); SEGMENTED NEUTROPHILS % (AUTO) 64.5 % (42-78); TOTAL CELLS COUNTED % (AUTO) 100 %; WHITE BLOOD COUNT 6.2 10^3/uL (4.0-10.5)
[2019-09-07 21:05] LABS: ALBUMIN 4.6 g/dL (3.5-5.0); ALKALINE PHOSPHATASE 72 U/L (38-126); ANION GAP 8 (5-19); ASPARTATE AMINO TRANSFERASE 53 U/L (14-36); BILIRUBIN,DIRECT 0.1 mg/dL (0.0-0.4); BILIRUBIN,TOTAL 0.8 mg/dL (0.2-1.3); BLOOD UREA NITROGEN 22 mg/dL (7-20); CALCIUM 9.9 mg/dL (8.4-10.2); CARBON DIOXIDE 27 mmol/L (22-30); CHLORIDE 102 mmol/L (98-107); GLUCOSE 94 mg/dL (75-110); POTASSIUM 4.1 mmol/L (3.6-5.0); TOTAL PROTEIN 7.7 g/dL (6.3-8.2)
--- NOTE | 2019-09-07 21:08 | RADIOLOGY REPORT (SQ) ---
XR CHEST 1 VIEW HISTORY: lung CA. COMPARISON: None. FINDINGS: The heart size is within normal limits. There is no pulmonary vascular congestion. No consolidation, pleural effusion, or pneumothorax is seen. There is a focal masslike opacity in the left upper lung zone adjacent to the upper mediastinum. The bony structures are preserved. IMPRESSION: Focal masslike opacity in the left upper lung zone adjacent to the upper mediastinum.
[2019-09-07 23:42] VITALS: BP 167/97
== END 2019-09-07 23:49 | disposition home or self-care (01) ==
LOC: ER 16:19
DX: E86.0 Dehydration (principal); R11.10 Vomiting, unspecified; R51 Headache; C34.90 Malignant neoplasm of unspecified part of unspecified bronchus or lung; C79.51 Secondary malignant neoplasm of bone; Z88.6 Allergy status to analgesic agent
CPT/HCPCS: 96376; 99284; 96361; 96374; 96375; 36415; 85025; 80053; 71045; J1200; J2270; J2405; J7030

== ENCOUNTER 2019-09-09 07:51 | Observation (INO) | payer OTHER ==
[2019-09-09] MEDS ORDERED: HYDROMORPHONE HCL INJ/PF 2 MG/ML AMPULE IV ONE (08:42)
[2019-09-09] MEDS ORDERED: METOCLOPRAMIDE HCL INJ/PF 10 MG/2 ML SDV IV ONE (08:42)
[2019-09-09] MEDS ORDERED: ONDANSETRON HCL INJ/PF 4 MG/2 ML SDV IV ONE (09:38)
[2019-09-09] MEDS: RINGERS SOLUTION,LACTATED 1,000 ML IV PRN ×2 (09:48→10:41)
--- NOTE | 2019-09-09 10:22 | RADIOLOGY REPORT (SQ) ---
EXAM DESCRIPTION: CT HEAD WITHOUT IMAGES COMPLETED DATE/TIME: 09/09/2019 10:12 am REASON FOR STUDY: Cancer with vomiting COMPARISON: 08/20/2019 TECHNIQUE: Axial images acquired through the brain without intravenous contrast. Images reviewed wi th bone, brain and subdural windows. Additional sagittal and coronal reconstructions were generated. Images stored on PACS. All CT scanners at this facility use dose modulation, iterative reconstruction, and/or weight based d osing when appropriate to reduce radiation dose to as low as reasonably achievable (ALARA). [facility]: Dose Right [facility]: CareDose [facility]: Dose Right [facility]: Teradose 4D [facility]: Glassmap RADIATION DOSE: CT Rad equipment meets quality standard of care and radiation dose reduction techniq ues were employed. CTDIvol: 53.2 mGy. DLP: 1017 mGy-cm. mGy. LIMITATIONS: None. FINDINGS: VENTRICLES: Normal size and contour. CEREBRUM: No masses. No hemorrhage. No midline shift. No evidence for acute infarction. Normal gra y/white matter differentiation. No areas of low density in the white matter. CEREBELLUM: No masses. No hemorrhage. No alteration of density. No evidence for acute infarction. EXTRAAXIAL SPACES: No fluid collections. No masses. ORBITS AND GLOBE: No intra- or extraconal masses. Normal contour of globe without masses. CALVARIUM: No fracture. PARANASAL SINUSES: No fluid or mucosal thickening. SOFT TISSUES: No mass or hematoma. Internal calcification along the right parietal calvarium. OTHER: No other significant finding. IMPRESSION: NO ACUTE INTRACRANIAL IMAGING FINDINGS. EVIDENCE OF ACUTE STROKE: NO. COMMENT: Quality ID # [id number]: Final reports with documentation of one or more dose reduction techniques (e.g., Automated exposure control, adjustment of the mA and/or kV according to patient size, use of iterative reconstruction technique) TECHNICAL DOCUMENTATION: JOB ID: [id number] 2010 [employer]- All Rights Reserved Reading location - IP/workstation name: [email or web address]
[2019-09-09 10:25] LABS: ABSOLUTE EOSINOPHILS # (AUTO) 0.1 10^3/uL (0.0-0.6); ABSOLUTE LYMPHOCYTES (AUTO) 1.3 10^3/uL (0.5-4.7); ABSOLUTE MONOCYTES (AUTO) 0.5 10^3/uL (0.1-1.4); ABSOLUTE NEUT (AUTO) 2.5 10^3/uL (1.7-8.2); EOSINOPHILS % (AUTO) 1.5 % (0-6); HEMOGLOBIN 13.9 g/dL (12.0-15.5); LYMPHOCYTES % (AUTO) 29.3 % (13-45); MEAN CORPUSCULAR HEMOGLOBIN 35.9 pg (27.0-33.4); MEAN CORPUSCULAR HGB CONC 34.8 g/dL (32.0-36.0); MEAN CORPUSCULAR VOLUME 103 fl (80-97); MONOCYTES % (AUTO) 12.4 % (3-13); PLATELET COUNT 194 10^3/uL (150-450); RED BLOOD COUNT 3.87 10^6/uL (3.72-5.28); RED CELL DISTRIBUTION WIDTH 13.5 % (11.5-14.0); SEGMENTED NEUTROPHILS % (AUTO) 55.8 % (42-78); TOTAL CELLS COUNTED % (AUTO) 100 %; WHITE BLOOD COUNT 4.4 10^3/uL (4.0-10.5)
[2019-09-09 10:47] LABS: ANION GAP 6 (5-19); BLOOD UREA NITROGEN 16 mg/dL (7-20); CALCIUM 9.2 mg/dL (8.4-10.2); CARBON DIOXIDE 24 mmol/L (22-30); CHLORIDE 107 mmol/L (98-107); GLUCOSE 100 mg/dL (75-110); POTASSIUM 3.6 mmol/L (3.6-5.0)
[2019-09-09] MEDS ORDERED: PROMETHAZINE HCL INJ 25 MG/1 ML VIAL IV ONE (10:52)
[2019-09-09] MEDS ORDERED: KETOROLAC TROMETHAMINE INJ/PF 30 MG/1 ML SDV IV ONE (10:52)
[2019-09-09] MEDS ORDERED: DIPHENHYDRAMINE HCL 50 MG/ML VIAL IV ONE (10:52)
--- NOTE | 2019-09-09 11:21 | ER Document Report ---
ED General - General Chief Complaint: Headache Stated Complaint: HEADACHE/NAUSEA Time Seen by Provider: 09/09/19 08:24 Notes: 63-year-old lady with metastatic lung cancer status post chemo and radiation with mets to the axial spine but not the head presents with headache for 3 months off and on. She was seen here today for headache, had a negative head CT and was discharged. She also had an MRI in mid August was negative. Head is holocephalic pulsating with photophobia and nausea. She is been dehydrated because she can eat and drink today. Not on any aggressive migraine or antiemetic therapy at home right now. She denies fever neck stiffness COVID-19 exposure. TRAVEL OUTSIDE OF THE [place] IN LAST 30 DAYS: No - Related Data Allergies/Adverse Reactions: morphine Adverse Reaction (Verified 09/09/19 08:15) Nausea Home Medications: prochlorperazine. gabapentin. oxycodone. oxycontin. folic acid. 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 Denies: Hx Asthma, Hx Bronchitis, Hx Pneumonia Neurological Medical History: Denies: Hx Cerebrovascular Accident, Hx Seizures Renal/ Medical History: Denies: Hx Peritoneal Dialysis Malignancy Medical History: Reports: Hx Bone Cancer, Hx Lung Cancer Musculoskeletal Medical History: Denies Hx Arthritis Past Surgical History: Reports: Hx Hysterectomy, Hx Orthopedic Surgery - Immunizations Hx Diphtheria, Pertussis, Tetanus Vaccination: Yes Review of Systems - Review of Systems Notes: REVIEW OF SYSTEMS GEN: Denies fever, chills, weight loss ENT: Denies sore throat, nasal discharge, ear pain EYES: Denies blurry vision, eye pain, discharge CV: Denies chest pain, palpitations, edema RESP: Denies cough, shortness of breath, wheezing GI: HPI MSK: Denies joint pain/swelling, edema, SKIN: Denies rash, skin lesions LYMPH: Denies swollen glands/lymph nodes NEURO: See HPI PSYCH: Denies depression, suicidal or homicidal ideation PHYSICAL EXAMINATION General: No acute distress, well-nourished Head: Atraumatic, normocephalic ENT: Mouth normal, oropharynx moist, no exudates or tonsillar enlargement Eyes: Conjunctiva normal, pupils equal, lids normal Neck: No JVD, supple, no guarding CVS: Normal rate, regular rhythm, no murmurs Resp: No resp distress, equal and normal breath sounds bilaterally GI: Nondistended, soft, no tenderness to palpation, no rebound or guarding Ext: No deformities, no edema, normal range of motion in upper and lower ext Back: No CVA or midline TTP Skin: No rash, warm Lymphatic: No lymphadeopathy noted Neuro: Awake, alert. Face symmetric. GCS 15. Normal strength and sensation. Physical Exam - Vital signs Vitals: Temp Pulse Resp BP Pulse Ox 97.5 F 83 18 167/102 H 100 09/09/19 08:07 09/09/19 08:07 09/09/19 08:07 09/09/19 08:07 09/09/19 08:07 Course - Re-evaluation Re-evalutation: 09/09/19 14:18 Patient presents with headache for several weeks in the setting of known metastatic cancer. She is had a negative MRI and Lasix weeks and negative CT 2 weeks ago and again today. Her neurologic exam is negative and she has no fever or meningismus. Doubt infection. Tough IV access. I placed an ultrasound- guided IV. 09/09/19 15:03 CT negative labs negative. Patient not she had an MRI. Discussed at length with [facility] and Dr. Vasquez. Does not need transfer per them and he will admit for pain control. - Vital Signs Vital signs: Temp Pulse Resp BP Pulse Ox 97.5 F 83 18 172/108 H 97 09/09/19 08:15 09/09/19 08:07 09/09/19 08:07 09/09/19 13:01 09/09/19 12:42 - Laboratory Result Diagrams: 09/09/19 10:18 09/09/19 10:18 Laboratory results interpreted by me: 09/09/19 09/09/19 10:18 10:18 MCV 103 H MCH 35.9 H Sodium 136.7 L Est GFR ( Amer) 57 L Est GFR (MDRD) Non-Af 47 L - Diagnostic Test Radiology reviewed: Image reviewed, Reports reviewed Discharge - Discharge Clinical Impression: Intractable headache Qualifiers: Headache type: tension-type Headache chronicity pattern: chronic headache Qual ified Code(s): G44.221 - Chronic tension-type headache, intractable Condition: Fair Disposition: ADMITTED OBSERVATION Admitting Provider: Christina (Hospitalist) Unit Admitted: Medical Floor
--- NOTE | 2019-09-09 12:43 | RADIOLOGY REPORT (SQ) ---
EXAM DESCRIPTION: MRI HEAD COMBO IMAGES COMPLETED DATE/TIME: 09/09/2019 12:30 pm REASON FOR STUDY: CA, intractable TRACY, neg CT COMPARISON: CT brain 09/09/2019, 08/20/2027 TECHNIQUE: Multiplanar imaging includes noncontrasted T1, T2, FLAIR, diffusion with ADC map and post gadolinium contrast T1 sequences. Images stored on PACS. CONTRAST TYPE AND DOSE: 15 mL Prohance. RENAL FUNCTION: Not indicated. ACR Type II contrast agent associated with few, if any, unconfounded cases of NSF LIMITATIONS: None. FINDINGS: ANATOMY: No developmental anomalies. Normal vascular flow voids. Pituitary fossa normal. CSF SPACES: Normal in size and contour. No hemorrhage. CEREBRUM: Diffusion-weighted images are negative for acute ischemic change. No acute intracranial hemorrhage, mass effect, or midline shift. No abnormal brain parenchymal or meningeal enhancement given history of lung cancer. FLAIR/ T2 weighted images demonstrate multiple small foci of increased white matter signal in the romeo p pericallosal frontal and parietal regions, and left temporal lobe. Question demyelinating disease versus small vessel disease, chronic. POSTERIOR FOSSA: No signal alteration. No hemorrhage. No edema, masses, or mass effect. Internal joel tory canals, cerebellopontine angles, mastoids normal. No enhancing lesions. No abnormal enhancement post contrast. DIFFUSION IMAGING: Negative for acute or subacute infarction. ORBITS: No masses. Globes normal. PARANASAL SINUSES: No fluid levels. Mucosa normal. OTHER: No other significant finding. IMPRESSION: No acute findings. No MR of intracranial metastatic disease. White Matter lesions, chronic in appearance. Question quiescent demyelinating disease versus small v essel ischemic change EVIDENCE OF ACUTE STROKE: NO. TECHNICAL DOCUMENTATION: JOB ID: [id number] 2010 [employer]- All Rights Reserved Reading location - IP/workstation name: [email or web address]
--- NOTE | 2019-09-09 14:04 | PDOC H&P ---
History of Present Illness History of Present Illness: GLENROY ONEILL is a 63 year old female with a history of metastatic lung cancer who typically gets her care up at [facility]. She said her last chemotherapy treatment was between 6 and 9 weeks ago. She said that for the last 3 months she has had frequent headaches. They typically come up the back of her neck and manifest themselves on the back of her head, sort of equivalent on either side, not really localizing to any other area. She says she has a history of a C3-C4 neck fusion that was done 20 years ago. She said her cancer doctor thought that perhaps the headaches were related to the chemotherapy, and that she is just not tolerating it very well anymore. She has tried multiple kylz-bfa-vuhgfne medications such as naproxen, ibuprofen, and acetaminophen. She has tried several different types of narcotic including oral Dilaudid. She has tried triptans. None of these have given her any relief. She got multiple different medications in the ER. She seemed to get a little bit of relief after some Toradol and Benadryl. She said that she is not really eaten a lot in the last several days because the headaches have been so bad. She does not feel like she is got any real neck stiffness or photophobia, but that it is just bothersome to her eyes. She has not had any fever or any meningeal signs. She had an MRI of the brain that was negative. Past Medical History Cardiac Medical History: Denies: Coronary Artery Disease, Myocardial Infarction, Hypertension Pulmonary Medical History: Reports: Chronic Obstructive Pulmonary Disease (COPD) - TUMOR IN LUNG, BX SATURDAY Denies: Asthma, Bronchitis, Pneumonia Neurological Medical History: Denies: Seizures Malignancy Medical History: Reports: Bone Cancer, Lung Cancer Musculoskeltal Medical History: Denies: Arthritis Hematology: Denies: Anemia Past Surgical History Past Surgical History: Reports: Hysterectomy, Orthopedic Surgery Social History Smoking Status: Never Smoker Electronic Cigarette use?: No Family History Family History: Reviewed & Not Pertinent Parental Family History Reviewed: Yes Children Family History Reviewed: Yes Sibling(s) Family History Reviewed.: Yes Medication/Allergy Home Medications: Acyclovir [Zovirax 5% Ointment 15 gm] 1 gm TD DAILY 10/15/18 Oxycodone HCl [Oxycontin] 20 mg PO PRN PRN 10/15/18 Oxycodone HCl/Acetaminophen [Percocet 5-325 mg Tablet] 2 tab PO ASDIR PRN 10/15/18 Omeprazole 20 mg PO DAILY #60 tablet. 01/01/19 Promethazine HCl [Phenergan 25 mg Tablet] 1 - 2 tab PO Q6HP PRN #30 tablet 01/01/19 Sumatriptan Succinate [Imitrex Inj/Pf 6 Mg/0.5 Ml Sdv] 6 mg SUBCUT Q1HP PRN #12 vial 05/03/19 Allergies/Adverse Reactions: morphine Adverse Reaction (Verified 09/09/19 08:15) Nausea Review of Systems All systems: reviewed and no additional remarkable complaints except as stated - All systems were reviewed and were negative except as noted in the HPI Physical Exam Vital Signs: Temp Pulse Resp BP Pulse Ox 97.5 F 83 18 167/102 H 99 09/09/19 08:15 09/09/19 08:07 09/09/19 08:07 09/09/19 08:07 09/09/19 11:01 Intake & Output 09/08/19 09/09/19 09/10/19 06:59 06:59 06:59 Intake Total 1999 Balance 1999 Weight 88.9 kg General appearance: PRESENT: no acute distress, cooperative, disheveled, obese Head exam: PRESENT: atraumatic, normocephalic Eye exam: PRESENT: EOMI, PERRLA. ABSENT: conjunctival injection, nystagmus, scleral icterus Ear exam: PRESENT: normal external ear exam Mouth exam: PRESENT: moist, neck supple Throat exam: ABSENT: post pharyngeal erythema Neck exam: PRESENT: full ROM. ABSENT: carotid bruit, JVD, lymphadenopathy, meningismus, tenderness, thyromegaly Respiratory exam: PRESENT: clear to auscultation hasmukh, symmetrical, unlabored. ABSENT: accessory muscle use, chest wall tenderness, crackles, prolonged expiratory phas, rhonchi, tachypnea, wheezes Cardiovascular exam: PRESENT: RRR, +S1, +S2 Pulses: PRESENT: normal carotid pulses Vascular exam: PRESENT: normal capillary refill GI/Abdominal exam: PRESENT: normal bowel sounds, soft. ABSENT: distended, guarding, rebound, tenderness Extremities exam: ABSENT: clubbing, pedal edema Musculoskeletal exam: PRESENT: normal inspection. ABSENT: deformity Neurological exam: PRESENT: alert, awake, oriented to person, oriented to place, oriented to time, oriented to situation, CN II-XII grossly intact. ABSENT: motor sensory deficit Psychiatric exam: PRESENT: appropriate affect, normal mood Skin exam: PRESENT: dry, warm Results Laboratory Results: 09/09/19 10:18 09/09/19 10:18 09/09/19 09/09/19 10:18 10:18 WBC 4.4 RBC 3.87 Hgb 13.9 Hct 40.0 MCV 103 H MCH 35.9 H MCHC 34.8 RDW 13.5 Plt Count 194 Seg Neutrophils % 55.8 Sodium 136.7 L Potassium 3.6 Chloride 107 Carbon Dioxide 24 Anion Gap 6 BUN 16 Creatinine 1.16 Est GFR ( Amer) 57 L Glucose 100 Calcium 9.2 Impressions: Head CT 09/09/19 08:24 IMPRESSION: NO ACUTE INTRACRANIAL IMAGING FINDINGS. EVIDENCE OF ACUTE STROKE: NO. Head MRI 09/09/19 10:48 IMPRESSION: No acute findings. No MR of intracranial metastatic disease. White Matter lesions, chronic in appearance. Question quiescent demyelinating disease versus small vessel ischemic change EVIDENCE OF ACUTE STROKE: NO. Assessment and Plan - Diagnosis (1) Intractable headache Qualifiers: Headache type: tension-type Headache chronicity pattern: chronic headache Qualified Code(s): G44.221 - Chronic tension-type headache, intractable Is this a current diagnosis for this admission?: Yes Plan: Pattern has been going on for a few months. She has headaches on most days. She says she has been nauseated the last few days. She seemed to respond little bit of Toradol. The pattern sounds like a tension type headache. She also has some hardware in her neck and that may be a contributing factor as well. I really do not think that the chemotherapy is affecting her in this way. I am going to give her some scheduled doses of Toradol and Phenergan and Flexeril to see if we can get her headache to break. - Time Time Spent with patient: 35 or more minutes
[2019-09-09] MEDS: CYCLOBENZAPRINE HCL 10 MG TABLET PO SCH ×2 (14:17→22:10)
[2019-09-09] MEDS: KETOROLAC TROMETHAMINE INJ/PF 30 MG/1 ML SDV IV SCH ×2 (17:55→23:22)
[2019-09-09] MEDS: PROMETHAZINE HCL INJ 25 MG/1 ML VIAL IV SCH ×2 (17:56→23:22)
[2019-09-10] MEDS: HYDRALAZINE HCL INJ/PF 20 MG/1 ML SDV IV PRN ×3 (00:20→23:19)
[2019-09-10] MEDS: CYCLOBENZAPRINE HCL 10 MG TABLET PO SCH (05:11)
[2019-09-10] MEDS: PROMETHAZINE HCL INJ 25 MG/1 ML VIAL IV SCH ×3 (05:11→12:18)
[2019-09-10] MEDS: KETOROLAC TROMETHAMINE INJ/PF 30 MG/1 ML SDV IV SCH ×3 (05:11→12:16)
[2019-09-10] MEDS ORDERED: GLUCAGON,HUMAN RECOMB 1 MG INJ SUBCUT PRN (07:45)
[2019-09-10] MEDS ORDERED: DEXTROSE 40% GEL 15 GM TUBE PO PRN ×2 (07:45)
[2019-09-10] MEDS ORDERED: DEXTROSE 50%-WATER 25 GM/50 ML DISP.SYRIN IV PRN ×2 (07:45)
[2019-09-10] MEDS ORDERED: HALOPERIDOL LACTATE INJ 5 MG/1 ML VIAL IV ONE (08:02)
[2019-09-10] MEDS: FOLIC ACID 1 MG TABLET PO SCH ×2 (09:14→09:27)
[2019-09-10] MEDS: PROPRANOLOL HCL 20 MG TABLET PO SCH ×2 (09:14→22:16)
[2019-09-10] MEDS: MULTIVITAMIN TABLET PO SCH ×2 (09:15→09:27)
[2019-09-10] MEDS ORDERED: OXYCODONE HCL SR 10 MG TABLET PO SCH (10:00)
[2019-09-10] MEDS ORDERED: DIPHENHYDRAMINE HCL 50 MG/ML VIAL IV ONE (12:12)
[2019-09-10] MEDS ORDERED: METHYLPREDNISOLONE INJ 40 MG/1 ML SDV IV ONE (12:13)
[2019-09-10] MEDS ORDERED: METOCLOPRAMIDE HCL INJ/PF 10 MG/2 ML SDV IV ONE (12:13)
--- NOTE | 2019-09-10 14:15 | PDOC PROGRESS REPORT ---
Subjective Progress Note for:: 09/10/19 Subjective:: Patient was seen on morning rounds. She was found resting in bed on room air. She reports severe headache, however, was noted to change positions abruptly; occasionally flinging herself back in bed and display of frustration regarding her discomfort. She reports continued nausea but without emesis. She tells me that her pain is specifically related to her neck; she tells me that her primary radiologist at [place] (list the name of several specialty providers at [facility] involved in her care) has told her that she should have C-spine imaging to evaluate for hardware issues. Otherwise, she denies fever, chills, chest pain, palpitations, dyspnea, abdo elfego pain, diarrhea. Discussed plan of care with nursing. Reason For Visit: INTRACTABLE HEADACHE Physical Exam Vital Signs: Temp Pulse Resp BP Pulse Ox 97.8 F 67 18 165/94 H 95 09/10/19 11:36 09/10/19 11:36 09/10/19 11:36 09/10/19 11:36 09/10/19 11:36 Intake & Output 09/09/19 09/10/19 09/11/19 06:59 06:59 06:59 Intake Total 2400 120 Balance 2400 120 Weight 88.9 kg General appearance: PRESENT: no acute distress, well-developed, well-nourished Head exam: PRESENT: atraumatic, normocephalic Eye exam: PRESENT: conjunctiva pink, EOMI, PERRLA. ABSENT: scleral icterus Mouth exam: PRESENT: moist, tongue midline Neck exam: PRESENT: full ROM, tenderness - Posterior. ABSENT: JVD, lymphadenopathy, meningismus, thyromegaly Respiratory exam: PRESENT: clear to auscultation hasmukh, symmetrical, unlabored. ABSENT: rales, rhonchi, wheezes Cardiovascular exam: PRESENT: RRR. ABSENT: diastolic murmur, rubs, systolic murmur Vascular exam: PRESENT: normal capillary refill Extremities exam: PRESENT: full ROM. ABSENT: calf tenderness, clubbing, pedal edema Neurological exam: PRESENT: alert, awake, oriented to person, oriented to place, oriented to time, oriented to situation, CN II-XII grossly intact. ABSENT: motor sensory deficit Psychiatric exam: PRESENT: agitated. ABSENT: homicidal ideation, suicidal ideation Skin exam: PRESENT: dry, intact, warm. ABSENT: cyanosis, rash Results Laboratory Results: 09/09/19 10:18 09/09/19 10:18 Impressions: Head CT 09/09/19 08:24 IMPRESSION: NO ACUTE INTRACRANIAL IMAGING FINDINGS. EVIDENCE OF ACUTE STROKE: NO. Head MRI 09/09/19 10:48 IMPRESSION: No acute findings. No MR of intracranial metastatic disease. White Matter lesions, chronic in appearance. Question quiescent demyelinating disease versus small vessel ischemic change EVIDENCE OF ACUTE STROKE: NO. Assessment and Plan - Diagnosis (1) Intractable headache Qualifiers: Headache type: tension-type Headache chronicity pattern: chronic headache Qualified Code(s): G44.221 - Chronic tension-type headache, intractable Is this a current diagnosis for this admission?: Yes Plan: Pattern has been going on for a few months. She has headaches on most days. She says she has been nauseated the last few days. The pattern sounds like a tension type headache. She also has some hardware in her neck and that may be a contributing factor as well. I really do not think that the chemotherapy is affecting her in this way. Patient states that her discomfort was not responsive to combination of Flexeril and Toradol. She is informed that we will not be prescribing narcotics as this resulted in rebound headaches. She is agreeable to trial of IV Benadryl, Reglan, and low-dose Solu-Medrol. Start propanolol 20 mg twice daily. We will provide Valium 2 mg p.o. every 8 hours neck pain/stiffness. Fioricet every 6 hours as needed Possible recommendation for neuro/neuropsychiatric follow-up. (2) Neck pain Is this a current diagnosis for this admission?: Yes Plan: Patient with full range of motion but posterior tenderness out of proportion to exam. She states that her neck discomfort is the primary cause of her intractable headaches. She requests C-spine imaging. CT pending. Analgesics as above. (3) HTN (hypertension) Is this a current diagnosis for this admission?: Yes Plan: Propanolol 20 mg twice daily. Monitor for need for additional antihypertensive medications. Cardiac diet (4) History of lung cancer Is this a current diagnosis for this admission?: Yes Plan: Followed by Dr. Tato Su at [place]. Did call his office and spoke with his nurse, Luh. She verifies that her last narcotic prescription was dated 07/30/2019; oxycodone 5 mg every 6 hours #120 without refills. She also confirms that the patient should be on gabapentin; 600 mg total daily dose. She was unable to comment on whether or not Dr. Su was weaning the patient's opiates (the previous month she was on OxyContin 20 mg/day and the month prior OxyContin 80 mg/day). Follow-up as previously scheduled. - Time Time Spent with patient: 35 or more minutes Medications reviewed and adjusted accordingly: Yes Anticipated discharge: Home Within: within 24 hours
--- NOTE | 2019-09-10 14:30 | RADIOLOGY REPORT (SQ) ---
EXAM DESCRIPTION: CT CERVICAL SPINE WITHOUT IMAGES COMPLETED DATE/TIME: 09/10/2019 1:56 pm REASON FOR STUDY: neck pain COMPARISON: CT cervical spine 08/20/2019 CT angio chest 12/02/2018 TECHNIQUE: Axial images acquired through the cervical spine without intravenous contrast. Images re viewed with lung, soft tissue and bone windows. Reconstructed coronal and sagittal MPR images review ed. Images stored on PACS. All CT scanners at this facility use dose modulation, iterative reconstruction, and/or weight based d osing when appropriate to reduce radiation dose to as low as reasonably achievable (ALARA). [facility]: Dose Right [facility]: CareDose [facility]: Dose Right [facility]: Teradose 4D [facility]: Smart [employer] RADIATION DOSE: CT Rad equipment meets quality standard of care and radiation dose reduction techniq ues were employed. CTDIvol: 21.9 mGy. DLP: 545 mGy-cm. mGy. LIMITATIONS: None. FINDINGS: ALIGNMENT: Anatomic. MINERALIZATION: Normal. VERTEBRAL BODIES: No fractures or dislocation. DISCS: Post fusion at the C5-6 level with bone graft material and anterior fixation plate with screws . No significant central or foraminal stenosis at C5-6. FACETS, LATERAL MASSES, POSTERIOR ELEMENTS: No fractures. No dislocation. No acute findings. HARDWARE: None in the spine. VISUALIZED RIBS: No fractures. LUNG APICES AND SOFT TISSUES: 2.5 x 1.5 cm left upper lobe lung mass (was 3.8 x 2[address] 9) OTHER: No other significant finding. IMPRESSION: No acute fracture or malalignment Post fusion at C5-6 without recurrent significant central or foraminal stenosis Left upper lobe lung mass smaller than on CT angio chest 12/02/2018 TECHNICAL DOCUMENTATION: JOB ID: [id number] Quality ID # [id number]: Final reports with documentation of one or more dose reduction techniques (e.g., Au tomated exposure control, adjustment of the mA and/or kV according to patient size, use of iterative reconstruction technique) 2010 [employer]- All Rights Reserved Reading location - IP/workstation name: [email or web address]
[2019-09-10] MEDS: DIAZEPAM 2 MG TABLET PO PRN (18:29)
[2019-09-10] MEDS ORDERED: GABAPENTIN 100 MG CAPSULE PO SCH (22:00)
[2019-09-11] MEDS: BUTALB/ACETAMINOPHEN/CAFFEINE 1 TAB EACH PO PRN ×3 (00:04→15:16)
[2019-09-11] MEDS ORDERED: HYDROMORPHONE HCL INJ/PF 2 MG/ML AMPULE IV PRN ×5 (00:11→00:40)
[2019-09-11] MEDS ORDERED: SUMATRIPTAN 20 MG NASAL SPRAY UD NASL PRN (07:33)
[2019-09-11] MEDS ORDERED: GABAPENTIN 100 MG CAPSULE PO SCH (08:00)
[2019-09-11] MEDS: DIAZEPAM 2 MG TABLET PO PRN (09:01)
[2019-09-11] MEDS: PROPRANOLOL HCL 20 MG TABLET PO SCH (09:01)
[2019-09-11] MEDS: MULTIVITAMIN TABLET PO SCH (11:51)
[2019-09-11] MEDS: FOLIC ACID 1 MG TABLET PO SCH (11:51)
[2019-09-11 12:01] VITALS: BP 121/90
--- NOTE | 2019-09-11 14:38 | PDOC DISCHARGE SUMMARY ---
Impression - Admit/DC Date/PCP Admission Date/Primary Care Provider: 09/09/19 15:24 WAN HOU MD Discharge Date: 09/11/19 - Discharge Diagnosis (1) Intractable headache Is this a current diagnosis for this admission?: Yes (2) Neck pain Is this a current diagnosis for this admission?: Yes (3) HTN (hypertension) Is this a current diagnosis for this admission?: Yes (4) History of lung cancer Is this a current diagnosis for this admission?: Yes - Additional Information Resuscitation Status: Full Code Discharge Diet: Regular Discharge Activity: Activity As Tolerated, Balance Activity w/Rest Referrals: GENE MALAGON MD [NO LOCAL MD] - 09/29/19 2:45 pm (Follow up with Dr. Danielle for your chronic headaches.) WAN HOU MD [Primary Care Provider] - 10/19/19 10:30 am Prescriptions: Duloxetine HCl [Cymbalta 30 mg Capsule.dr] 30 mg PO DAILY #30 capsule. Sumatriptan [Imitrex 20 Mg Nasal [place] Ud] 20 mg NASL BIDP PRN #4 spray PRN Reason: For Headache Propranolol HCl [Inderal 20 mg Tablet] 20 mg PO Q12 #60 tablet Ondansetron [Zofran Odt 4 mg Tablet] 1 - 2 tab PO Q4HP PRN #20 tab.rapdis PRN Reason: Home Medications: Acetaminophen [Acetaminophen Extra Strength] 500 mg PO Q8HP PRN 09/09/19 Folic Acid [Folvite 1 mg Tablet] 1 mg PO DAILY 09/09/19 Gabapentin [Neurontin 100 mg Capsule] 200 mg PO QAM 09/09/19 Gabapentin [Neurontin 100 mg Capsule] 400 mg PO QHS 09/09/19 Ibuprofen [Motrin 800 mg Tablet] 800 mg PO Q8HP PRN 09/09/19 Multivitamin [Daily Multiple Vitamin] 1 tab PO DAILY 09/09/19 Oxycodone HCl [Oxy-Ir 5 mg Tablet] 5 mg PO ASDIR PRN 09/09/19 Oxycodone HCl [Oxycontin Sr 10 mg Tablet] 10 mg PO BID 09/09/19 Prochlorperazine Maleate [Compazine 10 mg Tablet] 10 mg PO ASDIR PRN 09/09/19 Duloxetine HCl [Cymbalta 30 mg Capsule.dr] 30 mg PO DAILY #30 capsule. 09/11/19 Ondansetron [Zofran Odt 4 mg Tablet] 1 - 2 tab PO Q4HP PRN #20 tab.michael 09/11/19 Propranolol HCl [Inderal 20 mg Tablet] 20 mg PO Q12 #60 tablet 09/11/19 Sumatriptan [Imitrex 20 Mg Nasal [place] Ud] 20 mg NASL BIDP PRN #4 spray 09/11/19 History of Present Illiness History of Present Illness: Per H&P by Dr. Vasquez: GLENROY ONEILL is a 63 year old female with a history of metastatic lung cancer who typically gets her care up at [place]. She said her last chemotherapy treatment was between 6 and 9 weeks ago. She said that for the last 3 months she has had frequent headaches. They typically come up the back of her neck and manifest themselves on the back of her head, sort of equivalent on either side, not really localizing to any other area. She says she has a history of a C3-C4 neck fusion that was done 20 years ago. She said her cancer doctor thought that perhaps the headaches were related to the chemotherapy, and that she is just not tolerating it very well anymore. She has tried multiple qadl-atr-pszctzm medications such as naproxen, ibuprofen, and acetaminophen. She has tried several different types of narcotic including oral Dilaudid. She has tried triptans. None of these have given her any relief. She got multiple different medications in the ER. She seemed to get a little bit of relief after some Toradol and Benadryl. She said that she is not really eaten a lot in the last several days because the headaches have been so bad. She does not feel like she is got any real neck stiffness or photophobia, but that it is just bothersome to her eyes. She has not had any fever or any meningeal signs. She had an MRI of the brain that was negative. Hospital Course Hospital Course: (1) Intractable headache Improved following Imitrex today. Pattern has been going on for a few months. She has headaches on most days. She says she has been nauseated the last few days. The pattern sounds like a tension type headache. She also has some hardware in her neck and that may be a contributing factor as well. I really do not think that the chemotherapy is affecting her in this way. Head CT benign Cervical spine CT benign Head MRI benign Patient states that her discomfort was not responsive to combination of Flexeril and Toradol. Poor response to Fioricet. Trial of IV Benadryl, Reglan, and low-dose Solu-Medrol provided relief for several hours Start propanolol 20 mg twice daily; continue at discharge. Start Cymbalta for chronic pain. Encourage nonpharmacological interventions. Patient is discharged home with recommendations to follow-up with her oncologist as scheduled and with Dr. Danielle as scheduled on September 28. (2) Neck pain Patient with full range of motion but posterior tenderness out of proportion to exam. She states that her neck discomfort is the primary cause of her intractable headaches. C-spine CT is negative for acute findings. Did incidentally note the known right upper lobe lung mass. Analgesics as above. (3) HTN (hypertension) Improved with start of propanolol Propanolol 20 mg twice daily. Continue following discharge Lifestyle modification, dietary and medication compliance encouraged. (4) History of lung cancer Followed by Dr. Tato Hou at [place]. Did call his office and spoke with his nurse, Luh. She verifies that her last narcotic prescription was dated 07/30/2019; oxycodone 5 mg every 6 hours #120 without refills. She also confirms that the patient should be on gabapentin; 600 mg total daily dose. She was unable to comment on whether or not Dr. Su was weaning the patient's opiates (the previous month she was on OxyContin 20 mg/day and the month prior OxyContin 80 mg/day). Follow-up as previously scheduled. Physical Exam Vital Signs: Temp Pulse Resp BP Pulse Ox 98.4 F 69 16 121/90 H 99 09/11/19 11:22 09/11/19 11:22 09/11/19 11:22 09/11/19 11:22 09/11/19 11:22 Intake & Output 09/10/19 09/11/19 09/12/19 06:59 06:59 06:59 Intake Total 2400 1140 Balance 2400 1140 Weight 88.9 kg 88.9 kg General appearance: PRESENT: no acute distress, well-developed, well-nourished - Overweight Head exam: PRESENT: atraumatic, normocephalic Eye exam: PRESENT: conjunctiva pink, EOMI, PERRLA. ABSENT: scleral icterus Mouth exam: PRESENT: moist, tongue midline Respiratory exam: PRESENT: symmetrical, unlabored, other - Room air. ABSENT: accessory muscle use, retraction Cardiovascular exam: PRESENT: RRR Vascular exam: PRESENT: normal capillary refill Extremities exam: PRESENT: full ROM. ABSENT: calf tenderness, clubbing, pedal edema Musculoskeletal exam: PRESENT: ambulatory Neurological exam: PRESENT: alert, awake, oriented to person, oriented to place, oriented to time, oriented to situation, CN II-XII grossly intact. ABSENT: motor sensory deficit Psychiatric exam: PRESENT: appropriate affect, normal mood. ABSENT: homicidal ideation, suicidal ideation Skin exam: PRESENT: dry, intact, warm. ABSENT: cyanosis, rash Results Laboratory Results: WBC 4.4 10^3/uL (4.0-10.5) 09/09/19 10:18 RBC 3.87 10^6/uL (3.72-5.28) 09/09/19 10:18 Hgb 13.9 g/dL (12.0-15.5) 09/09/19 10:18 Hct 40.0 % (36.0-47.0) 09/09/19 10:18 MCV 103 fl (80-97) H 09/09/19 10:18 MCH 35.9 pg (27.0-33.4) H 09/09/19 10:18 MCHC 34.8 g/dL (32.0-36.0) 09/09/19 10:18 RDW 13.5 % (11.5-14.0) 09/09/19 10:18 Plt Count 194 10^3/uL (150-450) 09/09/19 10:18 Lymph % (Auto) 29.3 % (13-45) 09/09/19 10:18 [place] % (Auto) 12.4 % (3-13) 09/09/19 10:18 Eos % (Auto) 1.5 % (0-6) 09/09/19 10:18 Baso % (Auto) 1.0 % (0-2) 09/09/19 10:18 Absolute Neuts (auto) 2.5 10^3/uL (1.7-8.2) 09/09/19 10:18 Absolute Lymphs (auto) 1.3 10^3/uL (0.5-4.7) 09/09/19 10:18 Absolute Monos (auto) 0.5 10^3/uL (0.1-1.4) 09/09/19 10:18 Absolute Eos (auto) 0.1 10^3/uL (0.0-0.6) 09/09/19 10:18 Absolute Basos (auto) 0.0 10^3/uL (0.0-0.2) 09/09/19 10:18 Seg Neutrophils % 55.8 % (42-78) 09/09/19 10:18 Sodium 136.7 mmol/L (137-145) L 09/09/19 10:18 Potassium 3.6 mmol/L (3.6-5.0) 09/09/19 10:18 Chloride 107 mmol/L (98-107) 09/09/19 10:18 Carbon Dioxide 24 mmol/L (22-30) 09/09/19 10:18 Anion Gap 6 (5-19) 09/09/19 10:18 BUN 16 mg/dL (7-20) 09/09/19 10:18 Creatinine 1.16 mg/dL (0.52-1.25) 09/09/19 10:18 Est GFR ( Amer) 57 (>60) L 09/09/19 10:18 Est GFR (MDRD) Non-Af 47 (>60) L 09/09/19 10:18 Glucose 100 mg/dL (75-110) 09/09/19 10:18 Calcium 9.2 mg/dL (8.4-10.2) 09/09/19 10:18 Impressions: Head CT 09/09/19 08:24 IMPRESSION: NO ACUTE INTRACRANIAL IMAGING FINDINGS. EVIDENCE OF ACUTE STROKE: NO. Head MRI 09/09/19 10:48 IMPRESSION: No acute findings. No MR of intracranial metastatic disease. White Matter lesions, chronic in appearance. Question quiescent demyelinating disease versus small vessel ischemic change EVIDENCE OF ACUTE STROKE: NO. Cervical Spine CT 09/10/19 00:00 IMPRESSION: No acute fracture or malalignment Post fusion at C5-6 without recurrent significant central or foraminal stenosis Left upper lobe lung mass smaller than on CT angio chest 12/02/2018 Plan Plan of Treatment: Patient is discharged home in stable condition. She is advised follow-up with her primary care provider within 1 week. She should follow-up with her oncologist, Dr. Hou, as scheduled. We have also made an appointment with Dr. Danielle to establish with a neurologist for further evaluation and management of her chronic headaches. Recommend the patient consider establishing with a pain management service; referral has been provided. She is instructed to take her medications as prescribed. Drink plenty of water, rest. Consider starting a headache journal. Return to the emergency department as needed for concerning symptoms. Patient's HPI, evaluation, clinical status, and plan reviewed with Dr. Luz prior to discharge. Time Spent: Greater than 30 Minutes Stroke Is this a Stroke Patient?: No Acute Heart Failure - Is this a Heart Failure Patient?: No
== END 2019-09-11 18:21 | disposition home or self-care (01) ==
LOC: ER 07:51 → EH 15:24 → 4N 18:35
PROVIDERS: ADMIT Family Medicine; ATTEND Registered Nurse
DX: G44.221 Chronic tension-type headache, intractable (principal); M54.2 Cervicalgia; R11.0 Nausea; C78.00 Secondary malignant neoplasm of unspecified lung; C79.51 Secondary malignant neoplasm of bone; I10 Essential (primary) hypertension; E66.9 Obesity, unspecified; Z79.899 Other long term (current) drug therapy; Z79.891 Long term (current) use of opiate analgesic; Z98.1 Arthrodesis status; Z92.21 Personal history of antineoplastic chemotherapy; Z92.3 Personal history of irradiation
CPT/HCPCS: 99284; 96361; 96374; 96375; 36415; 85025; 80048; 70553; 70450; 72125; A9576; J3490 ×8; J1200 ×2; J1630; J0360; J2920; J1885 ×2; J2765; J1170 ×2; J2550 ×2; J2405; J7120

== ENCOUNTER 2019-09-13 18:18 | Emergency (ER) | payer SELFPAY ==
[2019-09-13] MEDS ORDERED: NORMAL SALINE 1000 ML 1,000 ML IV ONE (19:34)
[2019-09-13] MEDS ORDERED: DULOXETINE HCL 30 MG CAPSULE.DR PO ONE (19:34)
[2019-09-13] MEDS ORDERED: SUMATRIPTAN SUCCINATE INJ/PF 6 MG/0.5 ML SDV SUBCUT ONE (19:34)
[2019-09-13] MEDS ORDERED: DIAZEPAM 2 MG TABLET PO ONE (19:35)
[2019-09-13] MEDS ORDERED: PROPRANOLOL HCL 20 MG TABLET PO ONE (19:35)
--- NOTE | 2019-09-13 19:46 | ER Document Report ---
ED Headache - General Chief Complaint: Headache Stated Complaint: HEADACHE Primary Care Provider: WAN HOU MD [Primary Care Provider] - Follow up as needed Notes: Patient is a 63-year-old white female with a history of terminal lung cancer status post chemotherapy who sees oncology at [facility] who was seen here recently for an intractable headache, admitted and had a full work-up who returns today with a complaint of ongoing headache. This patient states while in the hospital they found a cocktail of medicines that seem to help. She states the headache was never resolved but did improve. She states that she is confused why they did not send her home with the totality of the medications that were controlling her symptoms only some of them. She notes they sent her home with Cymbalta, Imitrex and Inderal and Zofran as needed. She states that she was also given Dilaudid and Valium in the hospital which helped tremendously. She reports that she has Dilaudid at home so that was somewhat helpful but the Valium she feels helped the most. She adds that she called her radiation oncologist who agreed to write her prescription for Valium since it would help. There is a strong suspicion between the hospitalist notes and the patient's history that there is some cervical hardware that could be leading to nerve impingement causing these headaches. Patient has not had an MRI of the cervical spine but a CT in the hospital showed no acute process. Patient has an appointment next week with a neurologist and her oncologist. She states that she took the medicines this morning and just could not achieve the same result of headache improvement as we got here so she returned. She denies any worsening headache or any new symptoms. No visual disturbances. No back pain. No fever. No chest pain or shortness of breath. No numbness, tingling or weakness. No speech disturbances. TRAVEL OUTSIDE OF THE [place] IN LAST 30 DAYS: No - Related Data Allergies/Adverse Reactions: morphine Adverse Reaction (Verified 09/09/19 08:15) Nausea Home Medications: Gabapantin. deluxatine. Zofran. Cyclobenazipine. butalbital Past Medical History - Social History Smoking Status: Unknown if Ever Smoked Family History: Reviewed & Not Pertinent - Past Medical History Cardiac Medical History: Denies: Hx Coronary Artery Disease, Hx Heart Attack, Hx Hypertension Pulmonary Medical History: Reports: Hx 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, BX SATURDAY Denies: Hx Asthma, Hx Bronchitis, Hx Pneumonia Neurological Medical History: Denies: Hx Cerebrovascular Accident, Hx Seizures Renal/ Medical History: Denies: Hx Peritoneal Dialysis Malignancy Medical History: Reports: Hx Bone Cancer, Hx Lung Cancer Musculoskeletal Medical History: Denies Hx Arthritis Psychiatric Medical History: Denies: Hx Depression Past Surgical History: Reports: Hx Hysterectomy, Hx Orthopedic Surgery - Immunizations Hx Diphtheria, Pertussis, Tetanus Vaccination: Yes Review of Systems - Review of Systems Constitutional: denies: Fever EENT: denies: Blurred vision Cardiovascular: denies: Chest pain Respiratory: denies: Short of breath Gastrointestinal: denies: Abdominal pain Genitourinary: denies: Pain Female Genitourinary: denies: Vaginal discharge Musculoskeletal: Neck pain. denies: Back pain Skin: denies: Change in color Hematologic/Lymphatic: denies: Easy bleeding Neurological/Psychological: Headaches Physical Exam - Vital signs Vitals: Temp Pulse Resp BP Pulse Ox 98.0 F 74 20 155/100 H 97 09/13/19 18:32 09/13/19 18:32 09/13/19 18:32 09/13/19 18:32 09/13/19 18:32 - General General appearance: Appears well, Alert In distress: None - HEENT Head: Normocephalic, Atraumatic Eyes: Normal Conjunctiva: Normal Extraocular movements intact: Yes Eyelashes: Normal Pupils: PERRL Ears: Normal External canal: Normal Tympanic membrane: Normal Nasal: Normal Mouth/Lips: Normal Mucous membranes: Normal Pharynx: Normal Neck: Normal, Supple, Other - Slight tenderness palpation posterior cervical region in the area of prior hardware fixation. Full passive range of motion of the C-spine though patient gets some recreation of headache with extension of the cervical spine. Negative Kernig's and Brudzinski's. No evidence of meningismus - Respiratory Respiratory status: No respiratory distress Chest status: Nontender Breath sounds: Normal Chest palpation: Normal - Cardiovascular Rhythm: Regular Heart sounds: Normal auscultation - Abdominal Inspection: Normal Distension: No distension Bowel sounds: Normal Tenderness: Nontender Organomegaly: No organomegaly - Neurological Neuro grossly intact: Yes Cognition: Normal Orientation: AAOx4 Stockett Coma Scale Verbal: Oriented Stockett Coma Scale Motor: Obeys Commands Speech: Normal Cranial nerves: Normal Cerebellar coordination: Normal Motor strength normal: LUE, RUE, LLE, RLE Additional motor exam normals: Equal filler in Sensory: Normal Notes: Nonfocal - Psychological Associated symptoms: Normal affect, Normal mood - Skin Skin Temperature: Warm Skin Moisture: Dry Skin Color: Normal Course - Re-evaluation Re-evalutation: 09/13/19 19:44 Patient has a nonfocal, normal neurological exam. [facility], was discharged from the hospital just 2 days ago and has been unable to see anyone since it has been the weekend. She has good follow-up established in place. She states there is no new or worsening symptoms she is just been unable to achieve the same control he had here in the emergency department due to lack of being sent home with the exact same medication regimen. She is been taking the other medicines prescribed with minimal relief. She reports that she has her radiation oncologist who is giving her a prescription for Valium tomorrow. She reports having Dilaudid at home. We discussed that she should not use these 2 medications together due to the risk of respiratory depression and unexpected sudden especially in her case with a history of lung disease. She agreed. She will use those medications as previously prescribed and not together. We will give her a cocktail of medicines today, monitor her vital signs on a account resolution analyst and the patient reports if her headache improves she wishes to be discharged home to continue with her previous care follow-up and plan from her current regimen of doctors. 09/13/19 21:13 Reevaluation at this time, patient appears well but reports that her headache does not seem to have changed much. She is surprisingly alert, not somnolent and tolerating the medications well without any sedation. Suspect this is in relation to the tolerance because of the chronic benzo and opioids that she takes. Since she is handling this well we will give Dilaudid which she is accustomed to for pain control. Mom concerned about her blood pressure she had a normal head CT here a few days ago with the same headache presentation. She is a normal neurological exam, nonfocal. We will see where her blood pressure is after the Dilaudid and pain control. A review of her records shows over the many visits here since 2019 her blood pressure seems to be trending in an upward fashion. She reports that no one has addressed this and she is never taken any blood pressure medicines in the past. If her blood pressure still remains elevated after some improvement of the headache she will be started on a low-dose antihypertensive. Should be referred to a primary doctor since she states she does not have one and she will keep a blood pressure record log. 09/13/19 22:52 Reevaluation at this time, patient's headache has resolved by 95% per her account. She feels much better. Subsequently her blood pressure has improved quite significantly to 153/87. This is closer to her normal baseline noted in the earlier trends from last year. Suspect these new headaches as a causative agent to her increased blood pressures. Hesitant to give her blood pressure medicine as we do not want to cause her hypotension if she does fine and adequate pain control for her chronic pain and headaches. She does not have a primary so we will refer her locally. She will call her oncologist in the morning and her other pain specialist for further advice and management. She will call [facility] for a neurosurgeon for evaluation of her cervical hardware and headaches as well. Stable and appropriate for discharge and outpatient follow- up. I advised she return here any ER immediately with any new, persistent or worsening symptoms. She verbalized understood and agreed. - Vital Signs Vital signs: Temp Pulse Resp BP Pulse Ox 98.0 F 74 20 153/87 H 97 09/13/19 18:32 09/13/19 18:32 09/13/19 18:32 09/13/19 22:46 09/13/19 18:32 Discharge - Discharge Clinical Impression: Elevated blood pressure reading Headache Qualifiers: Headache type: unspecified Headache chronicity pattern: unspecified pattern Intractability: not intractable Qualified Code(s): R51 - Headache Condition: Stable Disposition: HOME, SELF-CARE Instructions: Headache ([facility]) Additional Instructions: Please call the primary doctor for appointment as soon as possible for evaluation. Please call [facility] for neurosurgery evaluation. Call your oncologist and banner painter for further advice regarding pain control. Please return here any ER immediately with any new, persistent or worsening symptoms. Please continue to record and log your blood pressures. Referrals: WAN HOU MD [Primary Care Provider] - Follow up as needed GARRICK MANSFIELD MD [ACTIVE STAFF] - Follow up as needed
[2019-09-13] MEDS ORDERED: HYDROMORPHONE HCL INJ/PF 2 MG/ML AMPULE IV ONE (21:13)
[2019-09-13 22:38] VITALS: BP 153/87
== END 2019-09-13 23:15 | disposition home or self-care (01) ==
LOC: ER 18:18
DX: R03.0 Elevated blood-pressure reading, without diagnosis of hypertension (principal); R51 Headache; Z88.6 Allergy status to analgesic agent
CPT/HCPCS: 99283; 96372; 96361; 96374; J3490 ×2; J1170; J3030; J7030

== ENCOUNTER 2019-09-20 16:03 | Emergency (ER) | payer OTHER ==
--- NOTE | 2019-09-20 17:02 | ER Document Report ---
ED Medical Screen (RME) - General Chief Complaint: High Blood Pressure Stated Complaint: POSSIBLE HIGH BLOOD PRESSURE Time Seen by Provider: 09/20/19 16:49 Primary Care Provider: WAN HOU MD [Primary Care Provider] - Follow up as needed Information source: Patient Notes: Patient is a 63-year-old female who returns to the emergency room with continued complaint of elevated blood pressure. Patient states this is her fourth visit in September for similar presentation. She is a terminal lung cancer patient who stopped doing chemotherapy approximately 11 weeks ago. Patient's headache star jefferson approximately 2 weeks after stopping of chemotherapy. Patient states she stopped chemotherapy because she had no quality of life. Since that point time though patient is been admitted to the hospital here in September for further work- up. Her primary complaint is elevated blood pressure and headaches. She states that her blood pressure at home was 177/128 and states it feels like she is going to have a stroke that pressure. Currently patient takes Dilaudid and Valium for her chronic pain. 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 She denies any vomiting but has had nausea with the headaches. Denies any visual changes. She has increasing loss of appetite however. Currently she sees [facility] for her oncology. In the last time her blood pressure medications were changed was on admission here to the hospital by 1 of the hospitalist. She currently takes amlodipine and propanolol. Denies any history of cardiac problems. Patient is here because she states the headaches are getting more intense and severe. Physical examination: Patient is well-nourished and well-developed 63-year-old who is in no apparent distress on examination today. Cardiac showed a regular rate and rhythm at about 80 bpm Lungs: Bilateral breath sounds decreased throughout no rhonchi or rales were heard. Neuro: Neuro exam of patient sitting showed no abnormalities at this time. She does have some dilated pupils greater than 4 mm. But are reactive and equal. TRAVEL OUTSIDE OF THE [place] IN LAST 30 DAYS: No - Related Data Allergies/Adverse Reactions: morphine Adverse Reaction (Verified 09/09/19 08:15) Nausea Past Medical History - Social History Frequency of alcohol use: None Drug Abuse: None - Past Medical History Cardiac Medical History: Denies: Hx Coronary Artery Disease, Hx Heart Attack, Hx Hypertension Pulmonary Medical History: Reports: Hx 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, BX SATURDAY Denies: Hx Asthma, Hx Bronchitis, Hx Pneumonia Neurological Medical History: Denies: Hx Cerebrovascular Accident, Hx Seizures Renal/ Medical History: Denies: Hx Peritoneal Dialysis Malignancy Medical History: Reports: Hx Bone Cancer, Hx Lung Cancer Musculoskeltal Medical History: Denies Hx Arthritis Psychiatric Medical History: Denies: Hx Depression Past Surgical History: Reports: Hx Hysterectomy, Hx Orthopedic Surgery - Immunizations Hx Diphtheria, Pertussis, Tetanus Vaccination: Yes Physical Exam - Vital signs Vitals: Temp Pulse Resp BP Pulse Ox 98.7 F 84 20 148/128 H 95 09/20/19 16:40 09/20/19 16:40 09/20/19 16:40 09/20/19 16:40 09/20/19 16:40 Course - Vital Signs Vital signs: Temp Pulse Resp BP Pulse Ox 98.7 F 84 20 148/128 H 95 09/20/19 16:40 09/20/19 16:40 09/20/19 16:40 09/20/19 16:40 09/20/19 16:40 Doctor's Discharge - Discharge Referrals: WAN HOU MD [Primary Care Provider] - Follow up as needed
[2019-09-20 17:34] LABS: ABSOLUTE EOSINOPHILS # (AUTO) 0.2 10^3/uL (0.0-0.6); ABSOLUTE LYMPHOCYTES (AUTO) 1.6 10^3/uL (0.5-4.7); ABSOLUTE MONOCYTES (AUTO) 0.3 10^3/uL (0.1-1.4); ABSOLUTE NEUT (AUTO) 1.3 10^3/uL (1.7-8.2); BASOPHILS % (AUTO) 1.3 % (0-2); EOSINOPHILS % (AUTO) 4.6 % (0-6); HEMATOCRIT 47.2 % (36.0-47.0); HEMOGLOBIN 16.3 g/dL (12.0-15.5); LYMPHOCYTES % (AUTO) 47.4 % (13-45); MEAN CORPUSCULAR HEMOGLOBIN 35.7 pg (27.0-33.4); MEAN CORPUSCULAR HGB CONC 34.5 g/dL (32.0-36.0); MEAN CORPUSCULAR VOLUME 103 fl (80-97); MONOCYTES % (AUTO) 9.2 % (3-13); PLATELET COUNT 229 10^3/uL (150-450); RED BLOOD COUNT 4.56 10^6/uL (3.72-5.28); SEGMENTED NEUTROPHILS % (AUTO) 37.5 % (42-78); TOTAL CELLS COUNTED % (AUTO) 100 %; WHITE BLOOD COUNT 3.5 10^3/uL (4.0-10.5)
[2019-09-20] MEDS ORDERED: HYDROMORPHONE HCL INJ/PF 2 MG/ML AMPULE IV ONE ×2 (17:49→21:23)
[2019-09-20 17:50] LABS: ALBUMIN 4.8 g/dL (3.5-5.0); ALKALINE PHOSPHATASE 97 U/L (38-126); ANION GAP 8 (5-19); ASPARTATE AMINO TRANSFERASE 46 U/L (14-36); BILIRUBIN,TOTAL 0.4 mg/dL (0.2-1.3); BLOOD UREA NITROGEN 16 mg/dL (7-20); CALCIUM 10.3 mg/dL (8.4-10.2); CARBON DIOXIDE 25 mmol/L (22-30); CHLORIDE 104 mmol/L (98-107); GLUCOSE 99 mg/dL (75-110); POTASSIUM 4.8 mmol/L (3.6-5.0); TOTAL PROTEIN 8.4 g/dL (6.3-8.2)
[2019-09-20] MEDS ORDERED: CLONIDINE HCL 0.1 MG TABLET PO ONE (17:50)
--- NOTE | 2019-09-20 17:51 | ER Document Report ---
ED Blood Pressure Problem <SHERINE LEIGH IV - Last Filed: 09/20/19 21:18> - General Mode of Arrival: Ambulatory Information source: Patient TRAVEL OUTSIDE OF THE [place] IN LAST 30 DAYS: No <NATI MADRIGAL - Last Filed: 09/21/19 09:22> - General Chief Complaint: High Blood Pressure Stated Complaint: POSSIBLE HIGH BLOOD PRESSURE Time Seen by Provider: 09/20/19 16:49 Primary Care Provider: WAN HOU MD [NO LOCAL MD] - Follow up as needed Notes: 63-year-old woman presents to the emergency department with a history of elevated blood pressures and headache with metastatic lung cancer status post chemo and radiation with mets to the axial spine. Headache is moderate, no nausea, no photophobia and no other neurologic symptoms. She was started on amlodipine 5 mg daily, she also takes metoprolol 10 mg daily, however, the blood pressure continues to be elevated. 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 Denies: Hx Asthma, Hx Bronchitis, Hx Pneumonia Neurological Medical History: Denies: Hx Cerebrovascular Accident, Hx Seizures Renal/ Medical History: Denies: Hx Peritoneal Dialysis Malignancy Medical History: Reports: Hx Bone Cancer, Hx Lung Cancer Musculoskeletal Medical History: Denies Hx Arthritis Psychiatric Medical History: Denies: Hx Depression Past Surgical History: Reports: Hx Hysterectomy, Hx Orthopedic Surgery - Immunizations Hx Diphtheria, Pertussis, Tetanus Vaccination: Yes <NATI MADRIGAL - Last Filed: 09/21/19 09:22> Review of Systems <NATI MADRIGAL - Last Filed: 09/21/19 09:22> - Review of Systems Notes: Constitutional: Negative for fever. HENT: Negative for sore throat. Eyes: Negative for visual changes. Cardiovascular: Negative for chest pain. Respiratory: Negative for shortness of breath. Gastrointestinal: Negative for abdominal pain, vomiting or diarrhea. Genitourinary: Negative for dysuria. Musculoskeletal: Negative for back pain. Skin: Negative for rash. Neurological: +headaches,+ dizziness 10 point ROS negative except as marked above and in HPI. (NATI MADRIGAL) Physical Exam <NATI MADRIGAL - Last Filed: 09/21/19 09:22> - Vital signs Vitals: Temp Pulse Resp BP Pulse Ox 98.7 F 84 20 148/128 H 95 09/20/19 16:40 09/20/19 16:40 09/20/19 16:40 09/20/19 16:40 09/20/19 16:40 - Notes Notes: GENERAL: Well-nourished well-developed 63-year-old with complaint of headache. HEAD: Normal with no signs of head trauma. EYES: PERRLA, EOMI, conjunctiva normal, no discharge. EARS: Hearing grossly intact. NOSE: Normal. THROAT: Oropharynx is normal. NECK: Normal range of motion, no tenderness, supple, no lymphadenopathy, No adenopathy, no JVD. CHEST: Clear breath sounds bilaterally. No wheezes, rales, or rhonchi. CARDIAC: Regular rate and rhythm. S1 and S2, without murmurs, gallops, or rubs. VASCULAR: No Edema. Peripheral pulses normal and equal in all extremities. ABDOMEN: Normal and soft with no tenderness, no masses or pulsatile masses. GASTROINTESTINAL: Bowel sounds normal GENITOURINARY: Normal, No tenderness LYMPATHTIC: No lymphadenopathy noted. MUSCULOSKELETAL: Good range of motion of all major joints. Extremities without clubbing, cyanosis or edema. NEUROLOGICAL: Alert and oriented x 3. No focal sensory or strength deficits. Speech normal. Follows commands appropriately. (NATI MADRIGAL) Course - Laboratory Result Diagrams: 09/20/19 17:10 09/20/19 17:10 - Diagnostic Test Radiology reviewed: Reports reviewed <SHERINE LEIGH IV - Last Filed: 09/20/19 21:18> - Laboratory Result Diagrams: 09/20/19 17:10 09/20/19 17:10 <NATI MADRIGAL - Last Filed: 09/21/19 09:22> - Re-evaluation Re-evalutation: 09/20/19 21:18 Patient's blood pressure is known to 159/98. Dr. Madrigal discussed disposition of this patient with this MD. He stated that if the patient's diastolic pressure was able to be brought under triple digits that patient be discharged home with a prescription for her amlodipine to be increased from 5 to 10 mg p.o. daily. The patient's daughter has asked that patient be tested for COVID despite the fact that the patient is currently asymptomatic. This MD will plan in order to have a regular COVID test ordered and the patient will be discharged with a prescription for the amlodipine and instructions in terms of self- isolation until contacted with the results of the COVID test. (SHERINE LEIGH IV) - Vital Signs Vital signs: Temp Pulse Resp BP Pulse Ox 98.2 F 84 13 123/96 H 98 09/20/19 22:20 09/20/19 16:40 09/20/19 22:02 09/20/19 22:02 09/20/19 22:02 - Laboratory Laboratory results interpreted by me: 09/20/19 09/20/19 17:10 17:10 WBC 3.5 L Hgb 16.3 H Hct 47.2 H MCV 103 H MCH 35.7 H Lymph % (Auto) 47.4 H Absolute Neuts (auto) 1.3 L Seg Neutrophils % 37.5 L Creatinine 1.51 H Est GFR ( Amer) 42 L Est GFR (MDRD) Non-Af 35 L Calcium 10.3 H AST 46 H Total Protein 8.4 H Discharge <SHERINE LEIGH IV - Last Filed: 09/20/19 21:18> <NATI MADRIGAL - Last Filed: 09/21/19 09:22> - Discharge Clinical Impression: Suspected severe acute respiratory syndrome coronavirus 2 (SARS-CoV-2) infection HTN (hypertension) Qualifiers: Hypertension type: unspecified Qualified Code(s): I10 - Essential (primary) hypertension Headache Qualifiers: Headache type: unspecified Headache chronicity pattern: unspecified pattern Intractability: not intractable Qualified Code(s): R51 - Headache Condition: Good Disposition: HOME, SELF-CARE Instructions: High Blood Pressure ([facility]) Additional Instructions: Return to the Emergency Department without delay if any worse. Your medications are being changed. Stop taking the 5 mg amlodipine daily and start taking 10 mg amlodipine as discussed. You do have had a COVID 19 test done today. As discussed you are to self quarantine until you have the results of the test which typically take 3 days. HOME CARE INSTRUCTIONS & INFORMATION: Thank you for choosing us for your medical needs. We hope you're satisfied with the care you received. After you leave, you must properly care for your problem and, at the same time, observe its progress. Any condition can change. Some illnesses can change rapidly over hours or days. If your condition worsens, return to the Emergency Department or see your physician promptly. ABOUT YOUR X-RAYS AND EKG'S: If you had an EKG or X-rays taken, they have been read by the Emergency Physician. The X-rays and EKG's will also be read by a Radiologist or Equipment Operator Wage [employer] within 24 hours. If discrepancies are noted, you will be notified by telephone. Please be certain the ED has a correct telephone number & address where you can be reached. Also, realize that some fractures or abnormalities do not show up on initial X-rays. If your symptoms continue, see your physician. ABOUT YOUR LABORATORY TEST: If you had laboratory tests, the results have been reviewed by the Emergency Physician. Some test results (for example cultures) may not be available for several days. You will be contacted if any test result shows you need additional treatment. Please be certain the ED has a correct telephone number and address where you can be reached. ABOUT YOUR MEDICATIONS: You will receive instructions on how to take your medicine on the prescription label you receive. Additional information may be provided by the Pharmacy. If you have questions afterwards, call the ED for clarification or further instructions. Some prescribed medications may cause drowsiness. Do not perform tasks such as driving a car or operating machinery without consulting your Pharmacist. If you feel you need a refill of pain medication, your condition will need re-evaluation. Please do not call for a refill of any medication. ABOUT YOUR SIGNATURE: Signature of this document acknowledges to followin. Understanding that you received emergency treatment and that you may be r eleased before al medical problems are known or treated. Please be certain the ED has a correct phone number & address where you can be reached. 2. Acknowledgement that you will arrange for follow-up care as recommended. 3. Authorization for the Emergency Physician to provide information to your follow-up Physician in order to maximize your care. AT ANY TIME, IF YOUR SYMPTOMS CHANGE SIGNIFICANTLY OR WORSEN OR YOU DEVELOP NEW SYMPTOMS, RETURN TO THE EMERGENCY DEPARTMENT IMMEDIATELY FOR RE-EVALUATION. OUR GOAL IS TO PROVIDE EXCELLENT MEDICAL CARE! WE HOPE THAT WE HAVE MET YOUR EXPECTATIONS DURING YOUR EMERGENCY DEPARTMENT VISIT AND THAT YOU FEEL YOU HAVE RECEIVED EXCELLENT CARE! Prescriptions: Amlodipine Besylate [Norvasc 10 mg Tablet] 10 mg PO DAILY #30 tablet Referrals: WAN HOU MD [NO LOCAL MD] - Follow up as needed
[2019-09-20] MEDS ORDERED: CLONIDINE HCL 0.2 MG TABLET PO ONE (18:40)
[2019-09-20] MEDS ORDERED: LORAZEPAM INJ 2 MG/1 ML VIAL IV ONE (18:41)
[2019-09-20] MEDS ORDERED: HYDRALAZINE HCL INJ/PF 20 MG/1 ML SDV IV ONE (19:11)
[2019-09-20 19:55] LABS: APPEARANCE,URINE CLEAR; BILIRUBIN,URINE NEGATIVE (NEGATIVE); COLOR,URINE STRAW; GLUCOSE, URINE NEGATIVE (NEGATIVE); KETONES,URINE NEGATIVE (NEGATIVE); PROTEIN,URINE NEGATIVE (NEGATIVE); URINE SPECIFIC GRAVITY 1.004; UROBILINOGEN,URINE NEGATIVE mg/dL (<2.0)
[2019-09-20] MEDS ORDERED: AMLODIPINE BESYLATE 5 MG TABLET PO ONE (20:06)
--- NOTE | 2019-09-20 20:42 | RADIOLOGY REPORT (SQ) ---
EXAM DESCRIPTION: Severe headache CLINICAL HISTORY: 63 years Female Severe headache TECHNIQUE: Noncontrast CT head. All CT scans at this facility use dose modulation, iterative reconstruction, and/or weight based dosing when appropriate to reduce radiation dose to as low as reasonably achievable. COMPARISON: CT head September 09, 2019 FINDINGS: Mild subcortical and deep white matter hypodensities are nonspecific, but in a pattern compatible with chronic microvascular ischemic change. No acute hemorrhage or mass effect. Visualized portions of paranasal sinuses and mastoids are clear. Visualized portions of the calvarium are within normal limits. Circumscribed partially calcified lesion within the scalp along the posterior right aspect of the vertex is nonspecific. IMPRESSION: 1. No acute intracranial hemorrhage or mass effect. Findings compatible with chronic microvascular ischemic change are noted. If there is clinical concern for acute stroke, consider MRI brain as a more sensitive evaluation.
[2019-09-20 22:10] VITALS: BP 123/96
--- NOTE | 2019-09-21 07:58 | EKG REPORT ---
SEVERITY:- ABNORMAL ECG - SINUS RHYTHM ABNORMAL T, CONSIDER ISCHEMIA, INFERIOR LEADS : Confirmed by: Ramya Mei 21-Sep-2019 07:57:12
== END 2019-09-20 22:25 | disposition home or self-care (01) ==
LOC: ER 16:03
DX: I10 Essential (primary) hypertension (principal); R51 Headache; R42 Dizziness and giddiness; C34.90 Malignant neoplasm of unspecified part of unspecified bronchus or lung; Z20.828 Contact with and (suspected) exposure to other viral communicable diseases; Z88.6 Allergy status to analgesic agent; Z90.710 Acquired absence of both cervix and uterus
CPT/HCPCS: 93005; 96376; 99284; 96374; 96375; 36415; 85025; 87635; 80053; 81001; 70450; 93010; J0360; J1170; J2060; C9803

== ENCOUNTER → 2019-09-23 | Outpatient (CLI) | payer OTHER ==
--- NOTE | 2019-09-23 16:11 | RADIOLOGY REPORT (SQ) ---
EXAM DESCRIPTION: C SP 4 OR 5 VIEWS IMAGES COMPLETED DATE/TIME: 09/23/2019 3:57 pm REASON FOR STUDY: NECK PAIN M54.2 CERVICALGIA COMPARISON: CT 08/20/2019. NUMBER OF VIEWS: Five views including obliques. TECHNIQUE: AP, lateral, obliques and odontoid radiographic images acquired of the cervical spine. LIMITATIONS: None. FINDINGS: MINERALIZATION: Normal. ALIGNMENT: Stable. VERTEBRAE: Maintained height. No fracture or worrisome bone lesion. DISCS: Multilevel disc space narrowing with osteophytes. POSTERIOR ELEMENTS: Pedicles and facets are intact. No posterior arch defects. Facet arthropathy is present. FORAMINA: Narrowed at the levels of maximal disc and facet disease. HARDWARE: Anterior fusion C5-6. PARASPINAL SOFT TISSUES: Normal. OTHER: No other significant finding. IMPRESSION: Cervical disc disease status post C5- 6 fusion. TECHNICAL DOCUMENTATION: JOB ID: [id number] 2010 [employer]- All Rights Reserved Reading location - IP/workstation name: [email or web address]
== END ==
LOC: OD 15:48
PROVIDERS: ATTEND Family Medicine
DX: M50.822 Other cervical disc disorders at C5-C6 level (principal); Z98.1 Arthrodesis status
CPT/HCPCS: 72050